=== PATIENT | female | born 1940 | race Caucasian/White ===

== ENCOUNTER 2018-01-29 11:52 | Inpatient (IN) | payer MEDICARE ==
[2018-01-29 12:38] LABS: PTT 32.2 SEC (22.9-36.1)
[2018-01-29 12:42] LABS: Prothrombin Time 13.2 SEC (12.0-14.7)
[2018-01-29] MEDS ORDERED: CEFAZOLIN/Water 2 GM/20 ML SYRINGE ONE (13:55)
--- NOTE | 2018-01-29 13:56 | RAD ---
CHEST 1 VIEW: Date: 01/29/18 HISTORY: Preop. COMPARISON: Chest radiograph dated 01/12/17. FINDINGS: Lungs are clear. No pneumothorax or effusion. Cardiac silhouette and mediastinal contours within norm al limits. Advanced degenerative disease of both shoulders. IMPRESSION: No acute intrathoracic abnormality. POS: [facility]
[2018-01-29] MEDS ORDERED: Midazolam HCl 2 mg/2 ml Vial ONE (14:14)
[2018-01-29] MEDS ORDERED: Fentanyl 250 MCG/5 ML VIAL ONE (14:14)
[2018-01-29] MEDS ORDERED: Ondansetron HCl/PF 4 MG/2 ML Vial ONE (14:19)
[2018-01-29] MEDS ORDERED: PHENYLEPHRINE-NS 100 MCG/ML 10 ML SYRINGE ONE (14:54)
[2018-01-29] MEDS ORDERED: Dexamethasone 20 MG/5 ML VIAL ONE (14:54)
[2018-01-29] MEDS ORDERED: Propofol 200 MG/20 ML VIAL ONE (14:54)
[2018-01-29] MEDS ORDERED: diphenhydrAMINE 50 MG/ML VIAL ONE (14:54)
[2018-01-29] MEDS ORDERED: Lidocaine 1% PF 5 ML VIAL ONE (14:54)
[2018-01-29] MEDS ORDERED: Dextrose 50% Abboject 50 ML SYRINGE SLOW IVP PRN (17:34)
[2018-01-29] MEDS ORDERED: Milk Of Magnesia 30 ML UDCUP PO PRN (17:34)
[2018-01-29] MEDS ORDERED: Dextrose 5% in Water 1,000 ML IV PRN (17:34)
[2018-01-29] MEDS ORDERED: Fleet Enema 133 ML BOT PR PRN (17:34)
[2018-01-29] MEDS ORDERED: Fentanyl 100 MCG/2 ML VIAL SLOW IVP PRN (17:34)
[2018-01-29] MEDS ORDERED: Bisacodyl 10 MG SUPP PR PRN (17:34)
[2018-01-29] MEDS ORDERED: traMADol HCl 50 MG TAB PO PRN (17:34)
[2018-01-29] MEDS ORDERED: Ondansetron HCl/PF 4 MG/2 ML Vial IVP PRN (17:34)
[2018-01-29] MEDS ORDERED: Ondansetron ODT 4 MG TAB PO PRN (17:34)
[2018-01-29] MEDS ORDERED: Cepastat Lozenges 1 LOZ PO PRN (17:34)
[2018-01-29 17:58] VITALS: BMI 20.5
[2018-01-29] MEDS: traMADol HCl 50 MG TAB PO PRN (18:40)
[2018-01-29] MEDS: Sodium Chloride 0.9% 1,000 ML IV SCH (18:46)
--- NOTE | 2018-01-29 19:08 | PRG ---
DATE OF SERVICE: 01/29/2018 SUBJECTIVE: Ms. Gonsales was seen earlier today in the emergency department after a ground level fall where she sustained a left hip fracture. She was admitted to the hospital by the Trauma Services. S he was then taken to the operating room by Dr. Shah. She is now seen on the surgical floor postop eratively. OBJECTIVE: VITAL SIGNS: Blood pressure 135/88, pulse 106, respirations 18, O2 sat 97% on 2 liters. Pain 2/10. CONSTITUTIONAL: Elderly female, sitting up in bed, eating dinner. No acute distress. CARDIOVASCULAR: Regular rate and rhythm. Heart sounds normal. RESPIRATORY: Breath sounds clear, on 2 liters O2 nasal cannula. EXTREMITIES: Moves all extremities well. Cap refill brisk. Neurovascularly intact. ASSESSMENT: 1. Status post ground level fall. 2. Status post open reduction and internal fixation, left hip fracture. PLAN: 1. The patient is on regular diet. We will add scheduled oral pain medications. 2. Start PT, OT tomorrow with orthopedic restrictions. We will continue to follow the patient closely. The patient was discussed with Dr. Smtih.
[2018-01-29] MEDS: Famotidine/PF 20 mg/2ml Vial SLOW IVP SCH (21:08)
[2018-01-29] MEDS: Aspirin 325 MG TAB PO SCH (21:08)
[2018-01-29] MEDS: CEFAZOLIN/Water 2 GM/20 ML SYRINGE SLOW IVP SCH (21:09)
[2018-01-29] MEDS: Senokot S 8.6-50 MG TAB PO SCH (21:09)
--- NOTE | 2018-01-29 22:49 | CON ---
DATE OF CONSULTATION: 01/29/2018 CHIEF COMPLAINT: Left hip pain. HISTORY OF PRESENT ILLNESS: Ms. Gonsales is a pleasant 77-year-old female who presents to me after a fall from a stand this morning. She says she fell and tripped on her left hip. Denied loss of consciousness. The pain is rated 8/ 10. Pain as highest as 10/10 with motion. The patient currently lives alone. She is walking around. The patient has history of COPD. PAST MEDICAL HISTORY: Includes COPD. She is on home oxygen. The patient has history of anxiety. PAST SURGICAL HISTORY: Includes a hysterectomy as well as a lithotripsy. ALLERGIES: No known drug allergies. MEDICATIONS: Includes albuterol, home O2, Advair and sertraline. SOCIAL HISTORY: She has a history of smoking. Currently, not drinking. The patient lives alone. The patient's ambulatory status is community/household. PHYSICAL EXAMINATION: VITAL SIGNS: 170/82, 88, 18, rate 95% on 2 liters. The patient's pain is 8/10. GENERAL: Alert and oriented female, in no acute distress. HEENT: Normocephalic and atraumatic. HEART: Regular rate. LUNGS: Unlabored, bilateral chest rise and nontender to palpation bilateral flanks. ABDOMEN: Soft, nontender and nondistended. PELVIC: Stable to AP and lateral compression. EXTREMITIES: Left lower extremity, the patient has externally rotated shortened left hip with ER The patient has 1+ DP and PT pulses, soft compartments. No knee effusion or abrasion to anterior knee. She has no tenderness to the left thigh. She has pain with internal and external rotation of her hip. IMAGING DATA: 1. Radiographs showed a left intertrochanteric hip fracture. 2. EKG shows sinus tachycardia and possible heart dilation. LABORATORY DATA: Hemoglobin and hematocrit 12 and 39, INR of 1. The patient's creatinine is 0.73. The patient had a negative UA. IMPRESSION: 1. Left intertrochanteric hip fracture. 2. Chronic obstructive pulmonary disease. 3. Anxiety. 4. Oxygen-dependent. ASSESSMENT AND PLAN: Plan will be for an intramedullary nailing of left hip. I discussed with patient the risks and benefits of a left intertrochanteric hip fracture that include pain, scar, bleeding, infection, damage to vital structures, damage to the vital organs, loss of life or limb. The patient is currently n.p.o. She will receive antibiotics and TXA preoperatively. She understands the risks and benefits and elected to proceed. We attempted contacting three of her family and relatives, but we did not have any contact information. We could not reach them on any of the cell phone number stated. MATTHEW
--- NOTE | 2018-01-29 22:50 | HP ---
REQUESTING PHYSICIAN: Dr. Teodoro Chirinos, Emergency Department. ADMITTING PHYSICIAN: Dr. Esteban Smith. CONSULTING PHYSICIAN: Dr. Tang Shah, Orthopedics. HISTORY OF PRESENT ILLNESS: Ms. Gonsales is a 77-year-old female, who was in her usual state of health today when she was ambulating on her doorway and slipped on her step, causing her to fall onto her l eft hip. She denies striking her head. She denies LOC. She does not complain of any other injuries . She does complain of pain in the left hip. The pain is worsened with palpation or movement. Pain is alleviated by pain medicine that she has been administered. She was describing that she was in h er usual state of health. She has no other complaints. She is typically on oxygen 2 liters at home 24 hours a day. She has COPD. She denies any other medical problems. She is not having any additio nal shortness of breath, chest pain, or any other distress. PAST MEDICAL HISTORY: Includes pulmonary disease; COPD, oxygen dependent. PAST SURGICAL HISTORY: 1. Lithotripsy for kidney stone. 2. Hysterectomy in 1973. SOCIAL HISTORY: The patient is a former tobacco smoker, 1 pack per day x50 years. She quit smoking 10-15 years ago. The patient denies alcohol use. The patient denies drug use. The patient lives at home with her daughter. MEDICATIONS: 1. Albuterol nebulizer. 2. Advair inhaler. 3. Sertraline. 4. Oxygen 2 liters via nasal cannula. ALLERGIES: No known drug allergies. DIAGNOSTIC IMAGING: X-ray of pelvis shows a nondisplaced intertrochanteric left hip fracture. LABORATORY DATA: Hematology: WBC 12.8, RBC 4.27, hemoglobin 12.6, hematocrit 39, platelets 260. Co ags: PT 13.2, INR 1.0. Chemistry: Sodium 143, potassium 4.2, chloride 108, carbon dioxide 25, BUN 11, creatinine 0.73, glucose 111. REVIEW OF SYSTEMS: Other than as stated above, review of systems is negative. PHYSICAL EXAMINATION: VITAL SIGNS: Blood pressure 151/69, pulse rate 99, O2 sat 96% on 2 liters O2 nasal cannula, respirat ions 18. Pain 5/10. CONSTITUTIONAL: Elderly female, in no acute distress, nontoxic appearing. HEENT: Atraumatic, normocephalic. NECK: Without posterior tenderness. Trachea midline. Normal range of motion. RESPIRATORY: Bilateral breath sounds clear. No respiratory distress. Symmetrical chest wall moveme nt. CARDIOVASCULAR: Regular rate and rhythm. Heart sounds normal. ABDOMEN: Soft, nontender, nondistended. Bowel sounds normal. BACK: Normal inspection. No tenderness to palpation. EXTREMITIES: Bilateral upper extremities within normal limits. Cap refill brisk. Neurovascularly i ntact. Right lower extremity atraumatic. Moves extremities well. Left lower extremity exhibits ext ernal rotation with shortening of the leg. Tenderness to the left hip with palpation. Neurovascular ly intact. Cap refill brisk. NEUROLOGIC: GCS is 15. Alert and oriented x3. No focal weakness. SKIN: Skin is warm and dry. Normal color. ASSESSMENT: 1. Status post ground level fall. 2. Left intertrochanteric hip fracture. 3. Acute traumatic pain. 4. History of chronic obstructive pulmonary disease, present on admission. PLAN: 1. Admit to surgical floor with Trauma Services, Dr. Smith. 2. Consult Dr. Shah. I have discussed with Dr. Shah and his plan is to move forward with oper ative intervention. 3. N.p.o. and IV fluids. 4. IV Tylenol scheduled for pain control. 5. Physical therapy and occupational therapy consult with orthopedic limitations postoperatively. 6. Rehab screen for rehab placement postoperatively. This patient was reviewed with Dr. Smith at the time of this dictation. Dr. Smith in agreement. A velarde orthopedic plan of care.
[2018-01-30] MEDS: Sodium Chloride 0.9% 1,000 ML IV SCH ×2 (04:35→12:25)
[2018-01-30] MEDS: CEFAZOLIN/Water 2 GM/20 ML SYRINGE SLOW IVP SCH (05:56)
[2018-01-30 06:01] LABS: Band 13 % (5-11); Hemoglobin 10.8 g/dL (12.0-16.0); Lymphocytes 10 % (21-51); MDiff Complete? YES; Mean Corpuscular Volume 93.9 fl (81.0-99.0); Monocytes 4 % (0-10); Neutrophil 73 % (42-75); PLT Morphology Comment Appears Adequate; Platelet Count 251 thou/uL (130-400); RBC Distribution Width 12.6 % (11.5-14.5); Red Blood Cell (RBC) Count 3.58 mill/uL (4.20-5.40); White Blood Cell (WBC) Count 11.5 thou/uL (4.8-10.8)
--- NOTE | 2018-01-30 07:28 | OP ---
DATE OF PROCEDURE: 01/29/2018 PREOPERATIVE DIAGNOSIS: Left intertrochanteric hip fracture. POSTOPERATIVE DIAGNOSIS: Left intertrochanteric hip fracture. PROCEDURE PERFORMED: Left intramedullary nailing TFNA, left intertrochanteric hip fracture. STAFF: Tang Shah M.D. MANAGER MATERIALS MANAGEMENT: None. ANESTHESIA: Paul Feliciano M.D. The patient received a spinal with a TIVA. ESTIMATED BLOOD LOSS: 100 mL. TOURNIQUET TIME: None. IMPLANTS: A Synthes 12 x 170 mm titanium cannulated TFNA, Synthes nail TFNA 95 mm screw, 5 mm x 36 m m distal locking screw. ANTIBIOTICS: Ancef 2 grams. The patient received TXA times about 4 mL and stated she was nauseated secondary to the injection. COMPLICATIONS: None. HISTORY OF PRESENT ILLNESS: Ms. Gonsales is a 77-year-old female, who presented after a fall from [facility], had left hip pain 8-10. The patient had x-rays showing an intertrochanteric hip fracture. I discussed with patient the risks and benefits of a left IM nailing for left intertrochanteric fractu re to include pain, scar, bleeding, infection, damage to vital structures, decreased range of motion, strength, continued pain despite surgical intervention, failure of procedure, fracture above or belo w stem, loss of life or limb. The patient understood the risks and benefits and elected to proceed. PROCEDURE IN DETAIL: Timeout was performed designating the patient's left lower extremity as the oper ative site based on sight, consents, and markings. After completion of timeout, patient's left lower extremity was prepped and draped in sterile fashion. She has been placed in traction with her hip r educed in traction. She had a little bit of extension deformity at the neck, which I corrected with force under radiograph and used a blunt push to help when during my placement of my center-center omid de. I started by placing a skin incision just above the greater trochanter down through skin to the IT band, split came down, felt the trochanter, placed my guide pin under visualization. My initial a pproach was on the anterior side using my 6 mm trocar to help push it posteriorly. I liked my positi on within the trocar and I then drill opening reamed it. I then placed my 12 mm nail into position a nd placed my guide to center-center position. I placed a stab incision anteriorly to help push the n kris posteriorly to keep it out of the flexed position. I then pin the hip into position. I overream ed to 100 and placed 95 mm screws, I compressed, letting the traction off to help with compression to get good overall alignment in AP and lateral radiographs. I liked the position. I was a little bit low in the center position of the head, but almost I had good tip to the apex distance. I then used my loose screw to lock the gate down onto the screw and release it by 180 degrees to help to allow f or compression. We then made a second stab incision more distally through the incision. I placed my compression screw and placed a distal locking screw, 5 mm locking screw. I then washed, closed with 0, 2-0, and sita. The patient will be weightbearing as tolerated. We will follow up with our post-op protocol. She wi ll receive Ancef and in x24 hours will be admitted back to Trauma Service.
--- NOTE | 2018-01-30 08:38 | RAD ---
LEFT HIP 2 VIEWS: Date: 01/29/18 PROVIDED CLINICAL HISTORY: Left hip fracture, status post open reduction and internal fixation. FINDINGS: Comparison made with examination performed earlier same date. Spot fluoroscopic frontal and lateral views of the left hip demonstrate interval antegrade intramedul kory femoral nail transfixing the previously described intertrochanteric left proximal femoral fractu re with proximal and distal interlocking screws. IMPRESSION: As above. POS: [facility]
[2018-01-30] MEDS: Aspirin 325 MG TAB PO SCH ×2 (08:58→21:11)
[2018-01-30] MEDS: Senokot S 8.6-50 MG TAB PO SCH ×2 (08:58→21:11)
[2018-01-30] MEDS: Ferrous Gluconate 324 MG TAB PO SCH ×2 (08:59→17:43)
[2018-01-30] MEDS: Famotidine/PF 20 mg/2ml Vial SLOW IVP SCH ×2 (08:59→21:11)
[2018-01-30] MEDS: Multivitamin W/ Minerals 1 TAB PO SCH (08:59)
[2018-01-30] MEDS: traMADol HCl 50 MG TAB PO PRN ×2 (09:03→15:05)
[2018-01-30] MEDS: Acetaminophen 325 MG TAB PO PRN ×2 (12:26→17:43)
--- NOTE | 2018-01-30 15:09 | PRG ---
DATE OF SERVICE: 01/30/2018 ATTENDING PHYSICIAN: Dr. Esteban Smith. SUBJECTIVE: Ms. Gonsales was admitted one day ago with a left intertrochanteric hip fracture. She is postoperative day #1 status post left IM nail. She has been stable overnight on the surgical floor. Pain has been well controlled. She is using her incentive spirometer. She is scheduled to begin wo rking with physical and occupational therapy today. OBJECTIVE: VITAL SIGNS: Temperature 97.9, pulse 105, respirations 16, O2 sat 96% on 2 liters nasal cannula, blo od pressure 148/80. CONSTITUTIONAL: Elderly female lying in bed. No acute distress. PULMONARY: Bilateral breath sounds, clear. The patient on 2 liters at home. No respiratory distre ss. CARDIOVASCULAR: Regular rate and rhythm. Heart sounds normal. EXTREMITIES: Moves all extremities well. Surgical dressing intact to the left hip area. NEUROLOGIC: GCS of 15. PSYCHIATRIC: AO x3. ABDOMEN: Soft, nontender, nondistended. ASSESSMENT: 1. Status post ground level fall. 2. Status post open reduction internal fixation left hip fracture. 3. History of chronic obstructive pulmonary disease, present on admission. PLAN: 1. Continue analgesia with Tylenol and tramadol as ordered. Restart home medications of inhalers an d Zoloft. 2. Continue PT and OT. 3. Case management screen as well as rehab screening. 4. We will discontinue Vergara tomorrow. 5. DVT prophylaxis with aspirin 325 mg p.o. b.i.d. 6. Pepcid for PUD prophylaxis. 7. Anticipate patient will discharge to rehab when we get acceptance. The patient was reviewed with Dr. Smith, attending surgeon, who agrees with plan.
--- NOTE | 2018-01-30 17:12 | PRG ---
DATE OF SERVICE: 01/30/2018 SUBJECTIVE: Ms. Kristen Gonsales is a 77-year-old female who has fallen and fractured her hip. She has undergone ORIF of her left hip by Dr. Shah. OBJECTIVE: LUNGS: Clear to auscultation. CARDIAC: Regular rate and rhythm without murmur or gallop. ABDOMEN: Soft, nontender. EXTREMITIES: Unremarkable. PLAN: Secondary survey does not reveal any other significant findings. Allyssa Phelan NP, has seen h er and I agree with her assessment and plan.
[2018-01-30] MEDS: Mometasone/Formoterol 120 PUFF INHALER INH SCH (19:15)
[2018-01-30] MEDS: Albuterol Sulfate 2.5 mg/3 ml Neb NEB PRN (19:18)
[2018-01-31 04:44] LABS: Hemoglobin 9.3 g/dL (12.0-16.0); Mean Corpuscular HGB CONC 33.3 g/dL (32.0-36.0); Mean Corpuscular Hemoglobin 30.5 pg (27.0-31.0); Mean Corpuscular Volume 91.5 fl (81.0-99.0); Mean Platelet Volume 7.3 fL (7.4-10.4); Platelet Count 207 thou/uL (130-400); RBC Distribution Width 12.5 % (11.5-14.5); Red Blood Cell (RBC) Count 3.04 mill/uL (4.20-5.40); White Blood Cell (WBC) Count 7.4 thou/uL (4.8-10.8)
[2018-01-31] MEDS: Mometasone/Formoterol 120 PUFF INHALER INH SCH ×2 (07:27→20:12)
[2018-01-31] MEDS: Aspirin 325 MG TAB PO SCH ×2 (08:24→21:03)
[2018-01-31] MEDS: Ferrous Gluconate 324 MG TAB PO SCH ×2 (08:24→16:52)
[2018-01-31] MEDS: Senokot S 8.6-50 MG TAB PO SCH ×2 (08:24→21:03)
[2018-01-31] MEDS: Famotidine/PF 20 mg/2ml Vial SLOW IVP SCH ×2 (08:25→23:46)
[2018-01-31] MEDS: Acetaminophen 325 MG TAB PO PRN (08:25)
[2018-01-31] MEDS: Multivitamin W/ Minerals 1 TAB PO SCH (08:25)
--- NOTE | 2018-01-31 16:05 | PRG ---
DATE OF SERVICE: 01/31/2018 ATTENDING PHYSICIAN: Dr. Esteban Smith. SUBJECTIVE: Ms. Gonsales was admitted 2 days ago with a left intertrochanteric hip fracture. She is p ostoperative day #2, status post left IM nail. She has been stable overnight on the surgical floor. Vergara catheter has been removed. She is now voiding. Pain has been well controlled. She is using her incentive spirometer with volumes to 750-1000 mL. OBJECTIVE: VITAL SIGNS: Temperature 98.4, pulse 92, respirations 18, O2 sat 97% on 2 liters nasal cannula, bloo d pressure 144/84. CONSTITUTIONAL: Elderly female lying in bed in no acute distress. PULMONARY: Bilateral breath sounds clear, 2 liters O2 nasal cannula. No respiratory distress. CARDIOVASCULAR: Regular rate and rhythm. Heart sounds normal. EXTREMITIES: Moves all extremities well. Surgical dressing intact, left hip area. NEUROLOGIC: GCS 15, A and O x3. ABDOMEN: Soft, nontender, nondistended. ASSESSMENT: 1. Status post ground level fall. 2. Status post open reduction and internal fixation of left hip fracture. 3. History of chronic obstructive pulmonary disease, present on admission. PLAN: 1. Continue analgesia with Tylenol and tramadol as ordered. 2. Continue home medications. 3. Continue PT and OT. 4. Continue rehab screen and case management for discharge planning. 5. DVT prophylaxis with aspirin 325 mg p.o. b.i.d. 6. Pepcid for PUD prophylaxis. 7. Anticipate the patient will discharge to rehab when we get acceptance. Patient was reviewed with Dr. Smith, attending surgeon, who agrees with plan.
[2018-01-31] MEDS: Albuterol Sulfate 2.5 mg/3 ml Neb NEB PRN (20:16)
[2018-01-31] MEDS: traMADol HCl 50 MG TAB PO PRN (21:02)
[2018-02-01 05:50] LABS: Hemoglobin 9.4 g/dL (12.0-16.0); Mean Corpuscular Hemoglobin 29.9 pg (27.0-31.0); Mean Corpuscular Volume 90.6 fl (81.0-99.0); Mean Platelet Volume 6.3 fL (7.4-10.4); Platelet Count 183 thou/uL (130-400); RBC Distribution Width 12.4 % (11.5-14.5); Red Blood Cell (RBC) Count 3.14 mill/uL (4.20-5.40); White Blood Cell (WBC) Count 7.2 thou/uL (4.8-10.8)
[2018-02-01] MEDS: Mometasone/Formoterol 120 PUFF INHALER INH SCH ×2 (07:53→19:26)
[2018-02-01 08:49] LABS: Anion Gap 7 mmol/L (10-20); BUN (Urea Nitrogen) 13 mg/dL (9.8-20.1); Calc. Creatinine Clearance 64 mL/min (70-130); Calcium 8.8 mg/dL (7.8-10.44); Carbon Dioxide 32 mmol/L (23-31); Chloride 106 mmol/L (98-107); Estimated GFR-MDRD Greater than 90; Glucose 99 mg/dL (83-110); Potassium 3.4 mmol/L (3.5-5.1); Sodium 142 mmol/L (136-145)
[2018-02-01] MEDS ORDERED: Docusate 100 MG CAP PO SCH (09:00)
[2018-02-01] MEDS ORDERED: Bisacodyl 10 MG SUPP PR PRN (09:00)
[2018-02-01] MEDS ORDERED: Bisacodyl 10 MG SUPP PR SCH (09:00)
[2018-02-01] MEDS ORDERED: Senokot 8.6 MG TAB PO SCH (09:00)
[2018-02-01] MEDS: Aspirin 325 MG TAB PO SCH (09:32)
[2018-02-01] MEDS: Multivitamin W/ Minerals 1 TAB PO SCH (09:33)
[2018-02-01] MEDS: Ferrous Gluconate 324 MG TAB PO SCH ×2 (09:33→17:36)
[2018-02-01] MEDS: Senokot S 8.6-50 MG TAB PO SCH (09:37)
[2018-02-01] MEDS: Famotidine/PF 20 mg/2ml Vial SLOW IVP SCH (09:37)
[2018-02-01] MEDS ORDERED: Ondansetron ODT 4 MG TAB PO PRN (09:38)
--- NOTE | 2018-02-01 09:59 | PQF ---
DATE: 02-01-18 ATTN: SANDEEP GARCIA NP / DR. ANTELMO CAON Please exercise your independent, professional judgment in responding to the clarification form. Clinical indicators are provided on the bottom of this form for your review Please check appropriate box(s): [ X ] Chronic Respiratory Failure [ X ] with Hypoxia [ ] with Hypercapnia [ ] Hypoxia [ ] Other diagnosis [ ] Unable to determine In addition, please specify: Present on Admission (POA): [ X ] Yes [ ] No [ ] Unable to determine For continuity of documentation, please document condition throughout progress notes and discharge summary. Thank You. CLINICAL INDICATORS - SIGNS / SYMPTOMS / LABS H&P: SHE IS TYPICALLY ON OXYGEN AT HOME 24 HRS A DAY, SHE HAS COPD. H&P: PAST MEDICAL HISTORY: COPD, OXYGEN DEPENDENT, FORMER SMOKER RISK FACTORS: H&P: SHE IS TYPICALLY ON OXYGEN AT HOME 24 HRS A DAY, SHE HAS COPD. H&P: PAST MEDICAL HISTORY: COPD, OXYGEN DEPENDENT, FORMER SMOKER TREATMENTS: H&P: SHE IS TYPICALLY ON OXYGEN AT HOME 24 HRS A DAY, SHE HAS COPD. (MAR) ALBUTEROL SULFATE (This form is maintained as a part of the permanent medical record) 2014 [employer] All Rights Reserved [email or web address] Office: [phone] MATTHEW
--- NOTE | 2018-02-01 10:02 | PRG ---
DATE OF SERVICE: 02/01/2018 SUBJECTIVE: Kristen is now postoperative day #3 from a left hip intertrochanteric fracture treated wit h short TFNA. She is doing relatively well, walking approximately 20-30 feet with assistance and [place] she will be transferred to skilled facility in the next day or so. PHYSICAL EXAMINATION: EXTREMITIES: Incision is clean. Olimpia are clean, no strikethrough is noted, intact. ASSESSMENT: A 77-year-old white female postop day #3 left hip intertrochanteric fracture treated wi th short transfemoral nail. PLAN: Orthopedic discharge orders for wound care, followup and activity has been entered. We will c sherie to follow daily until discharge.
--- NOTE | 2018-02-01 11:00 | PRG ---
DATE OF SERVICE: 02/01/2018 ATTENDING PHYSICIAN: Dr. Barrett Mendiola. SUBJECTIVE: Ms. Gonsales is a 77-year-old female who was admitted on 01/29/2018 with a left intertroch anteric hip fracture. She is now postop day 3 status post left IM nail. The patient has been stable on the surgical floor. She is on 2 liters nasal cannula which she is on at home. She voices no com plaints this morning. OBJECTIVE: VITAL SIGNS: BP 143/80, pulse 88, temperature 98.6, respirations 16, O2 sat 98% on 2 liters. GENERAL APPEARANCE: Patient is an elderly adult female sitting on the edge of the bed, working with physical therapy. HEENT: Normocephalic and atraumatic. RESPIRATORY: Breath sounds are clear to auscultation bilaterally. She is on 2 liters nasal cannula. CARDIOVASCULAR: She has regular rate and rhythm. Normal S1 and S2. EXTREMITIES: Patient is neurovascularly intact x4. Surgical dressing on the left hip is intact and dry. NEUROLOGIC: Patient's GCS is 15. This morning, she is A and O x3. She has no focal deficits. LABORATORY DATA: Hematology: WBC 7.2, hemoglobin 9.4, hematocrit 28.4, and platelets 183. Chemistr y: Sodium 142, potassium 3.4, chloride 106, bicarbonate 32, BUN 13, creatinine 0.62, glucose 99, tonio cium 8.8. IMAGING: There are no images to review today. ASSESSMENT: 1. Status post ground level fall. 2. Left hip fracture, status post intramedullary nail fixation. 3. History of chronic obstructive pulmonary disease, present on admission. PLAN: 1. Continue PT and OT. 2. Tylenol and tramadol for pain. 3. The patient has expressed a preference for discharge to swing bed in [place]. Case manageme nt following. This patient was seen and examined along with Dr. Barrett Mendiola on rounds and agrees with the assessm ent and plan.
[2018-02-01 16:29] VITALS: BP 97/64; TEMP 98.3
[2018-02-01] MEDS: Albuterol Sulfate 2.5 mg/3 ml Neb NEB PRN (19:23)
[2018-02-01] MEDS ORDERED: Famotidine 20 MG TAB PO SCH (21:00)
== END 2018-02-01 20:22 | disposition swing bed (61) | DRG 481 ==
LOC: ERS 11:52 → SDC 12:42 → SJJU 16:21
PROVIDERS: ADMIT Specialist; ATTEND Specialist
PROC: 0QS706Z Reposition Left Upper Femur with Intramedullary Internal Fixation Device, Open Approach (ICD-10-PCS; principal; 2018-01-29)
DX: S72.142A Displaced intertrochanteric fracture of left femur, initial encounter for closed fracture (principal); J96.11 Chronic respiratory failure with hypoxia; Z99.81 Dependence on supplemental oxygen; J44.9 Chronic obstructive pulmonary disease, unspecified; W10.8XXA Fall (on) (from) other stairs and steps, initial encounter; Y92.008 Other place in unspecified non-institutional (private) residence as the place of occurrence of the external cause; Z87.891 Personal history of nicotine dependence; F41.9 Anxiety disorder, unspecified
CPT/HCPCS: 36415; 71045; 76001; 80048; 85027; 85610; 85730; 86850; 86900; 86901; 93005; 94640; 94664; C1713; G0390; G8978-GP-CM; G8979-GP-CK; G8987-GO-CK; G8988-GO-CI; J1100; J1200; J2001; J2250; J2405; J2704; J3010; J7611; J7620; S0028

== ENCOUNTER 2019-10-17 09:24 | Day surgery (SDC) | payer MEDICARE ==
[2019-10-17] MEDS ORDERED: Metoclopramide HCl 10 MG/2 ML VIAL ONE (09:45)
[2019-10-17] MEDS ORDERED: Lidocaine 1% PF 5 ML VIAL ONE (09:53)
[2019-10-17] MEDS ORDERED: Glycopyrrolate 0.2 MG/ML 5 ML SYRINGE ONE (09:53)
[2019-10-17] MEDS ORDERED: PHENYLEPHRINE-NS 100 MCG/ML 10 ML SYRINGE ONE (09:53)
[2019-10-17] MEDS ORDERED: Rocuronium Bromide 10 MG/ML (10ML VIAL) ONE (09:53)
[2019-10-17] MEDS ORDERED: Ketorolac Tromethamine 30 MG/ML VIAL ONE (09:53)
[2019-10-17] MEDS ORDERED: Esmolol 100 MG/10 ML VIAL ONE (09:53)
[2019-10-17] MEDS ORDERED: PROPOFOL 200 MG/20 ML VIAL ONE (09:53)
[2019-10-17] MEDS ORDERED: Ondansetron PF 4 MG/2 ML Vial ONE (09:53)
[2019-10-17] MEDS ORDERED: Metoprolol Tartrate 5 MG/5 ML VIAL ONE (09:54)
--- NOTE | 2019-10-17 11:56 | ULT ---
US Gallbladder RUQ History: Pain Comparison: CT examination same day Findings: Real-time grayscale and color evaluation of the abdomen was performed. Visualized portion aorta, IVC, and pancreas unremarkable. Echotexture is normal. No hepatic or extra hepatic biliary dilatation. Portal vein is patent with ant egrade flow. Common bile 4 mm. Gallbladder measures 8 cm in length. Wall thickness is upper limits of normal. Normal bowel stone within the gallbladder neck. Right kidney measures 9.6 x 4 x 3.9 cm without mass, hydronephrosis, or abnormal calcification. Impression: Nonmobile stone within the gallbladder neck with early wall thickening concerning for ear ly cholecystitis.
--- NOTE | 2019-10-17 12:09 | RAD ---
CHEST 2 VIEWS: HISTORY: COPD. COMPARISON: 01/29/2018 study. FINDINGS: Heart size within normal limits. There are atherosclerotic changes of the aorta. The lungs show chr onic change similar to the prior study. The bones are demineralized. IMPRESSION: Chronic lung change. POS: [facility]
[2019-10-17 12:14] LABS: INR-International Normal Ratio 0.9; PTT 31.8 SEC (22.9-36.1); Prothrombin Time 11.8 SEC (12.0-14.7)
[2019-10-17] MEDS ORDERED: diphenhydrAMINE 50 MG/ML VIAL ONE (12:16)
[2019-10-17] MEDS ORDERED: Morphine 4 MG/ML VIAL ONE (12:36)
[2019-10-17] MEDS ORDERED: Labetalol HCl 100 MG/20 ML VIAL ONE (12:36)
[2019-10-17] MEDS ORDERED: Bupivacaine 0.25% HCL 30 ML VIAL ONE (12:44)
[2019-10-17] MEDS ORDERED: Fentanyl 250 MCG/5 ML VIAL ONE (12:53)
--- NOTE | 2019-10-17 13:03 | HP ---
HISTORY OF PRESENT ILLNESS: Ms. Gonsales is a 78-year-old woman, who was seen earlier in [facility] [facility] with insidious onset epigastric right upper quadrant abdominal pain, which started approximately 1800 hours yesterday following dinner consisting of pork chops and rice. The patient describes the pain as sharp,"took breath away." Pain radiated to the back and right shoulder. Pain was initially associated with some nausea and became progressive this morning to include multiple bouts of nonbilious emesis. The patient denies any fevers or chills. She has experienced similar pain in the past, which was self-limiting and not as intense as the pain that brought her to the emergency department today. The pain at this time was rated at 9/10 at maximum intensity. PAST MEDICAL HISTORY: Pertinent for peptic ulcerative disease in the distant past. Additionally, she has history of ADHD. PAST SURGICAL HISTORY: Abdominal hysterectomy in the 70s. SOCIAL HISTORY: She is a 50-pack year cigarette smoker, has not smoked over the last 15 years. She admits to occasional intake of ethanol in moderate amounts. Denies any illicit drug abuse. FAMILY HISTORY: Noncontributory for this patient's age. MEDICATIONS: Pre-hospital medications includes; 1. Sertraline 25 mg p.o. b.i.d. 2. Multivitamins. 3. P.r.n. acetaminophen. ALLERGIES: THE PATIENT DENIES ANY KNOWN DRUG ALLERGIES. REVIEW OF SYSTEMS: Ten-point review of systems essentially unremarkable except as stated in past medical history and chief complaint. PHYSICAL EXAMINATION: GENERAL: This reveals a 78-year-old normally developed woman, who is otherwise coherent, interactive, and appears stated age. The patient is alert and oriented x3, appears to be in moderate acute distress secondary to severe right upper quadrant abdominal pain. VITAL SIGNS: Include blood pressure 192/60, pulse 105 and irregular, respiratory rate 16, temperature 97.6 degrees Fahrenheit, oxygen saturation is 92% on 2 L by nasal cannula oxygen. HEENT: Reveals normocephalic and atraumatic. The pupils are equal, round, and reactive to light and accommodation. She has no scleral icterus present. Oral mucosa is pink and moist. No lesions are noted. NECK: Supple. No palpable lymphadenopathy or thyromegaly present. HEART: Reveals irregular rate and irregular rhythm. LUNGS: Clear to auscultation bilaterally. Her breathing is regular and nonlabored. ABDOMEN: Soft, moderately distended. She has right upper quadrant tenderness to palpation. She has a positive Gross sign. Liver and spleen otherwise nonpalpable below costal margin. EXTREMITIES: 2+ radial and pedal pulses bilaterally. No ankle edema is present. NEUROLOGIC: Reveals no focal deficits present. LABORATORY FINDINGS: Today includes CBC with 9100 white blood cells, hemoglobin and hematocrit 12.5 and 39.9 respectively. Platelet count is 301,000. Metabolic profile; sodium 139, potassium 3.4, chloride is 100, bicarb is 27, BUN is 7, creatinine 0.73, glucose 145, lactic acid is 1.2, AST 19, ALT 16, alkaline phosphatase is 101. PTT and INR are 31.8 seconds and 0.9 respectively. I have personally reviewed the abdominal ultrasound, which is remarkable for moderately distended gallbladder with solitary gallstone impacting gallbladder neck. There is minimum gallbladder wall thickening and no pericholecystic fluid is noted. Common bile duct is normal for this patient's age at 4.9 mm in diameter. IMPRESSION: Acute cholecystitis with cholelithiasis. PLAN: Laparoscopic cholecystectomy. The above findings and plan discussed with the patient, who indicates understanding of the information given. I have informed the patient of the risks and benefits of the proposed surgery to include, but not limited to bleeding, infection, injury to bile duct or surrounding structures. This instructions are given to the patient in the presence of her nurse. She indicated understanding of the information given. I have answered her questions. Job ID: [id number] [facility]
[2019-10-17] MEDS ORDERED: hydrALAZINE 20 MG/ML VIAL SLOW IVP SCH (16:00)
[2019-10-17] MEDS ORDERED: Calcium Carbonate 500 MG ChewTAB PO PRN (16:07)
[2019-10-17] MEDS ORDERED: Ondansetron PF 4 MG/2 ML Vial IVP PRN (16:07)
[2019-10-17] MEDS ORDERED: Mag-Al 1200 mg/1200 mg/30 ML UDCUP PO PRN (16:07)
[2019-10-17] MEDS ORDERED: hydrALAZINE 20 MG/ML VIAL SLOW IVP PRN (16:07)
[2019-10-17] MEDS ORDERED: Dextrose 50% Abboject 50 ML SYRINGE SLOW IVP PRN (16:07)
[2019-10-17] MEDS ORDERED: Promethazine HCl 25 MG/ML VIAL IM PRN (16:07)
[2019-10-17] MEDS ORDERED: Dextrose 5% in Water 1,000 ML IV PRN (16:07)
[2019-10-17] MEDS ORDERED: traMADol HCl 50 MG TAB PO PRN ×2 (16:10)
--- NOTE | 2019-10-17 16:47 | OP ---
DATE OF PROCEDURE: 10/17/2019 PREOPERATIVE DIAGNOSES: Acute cholecystitis, cholelithiasis. POSTOPERATIVE DIAGNOSES: Acute cholecystitis, cholelithiasis. OPERATION PERFORMED: Laparoscopic cholecystectomy. ANESTHESIA: General endotracheal anesthesia. ESTIMATED BLOOD LOSS: 25 mL. FLUIDS GIVEN: 800 mL crystalloids. COUNTS: Sponge and instrument counts were verified as correct x2. COMPLICATIONS: None apparent at the time of operation. INDICATIONS FOR OPERATION: This is a 78-year-old woman, presented with recurrent epigastric right upper quadrant abdominal pain. Clinical radiographic examination was consistent with acute cholecystitis, cholelithiasis, for which the patient was brought to the operating room for cholecystectomy. Findings are consistent with dilated gallbladder and the usual anatomic location completely encased by omental adhesions. DESCRIPTION OF PROCEDURE: Informed consent was obtained from the patient, who was brought to the operating room and placed in supine position. Following general anesthesia, abdomen was sterilely prepped and draped in usual fashion. The skin below the umbilicus was infiltrated with 0.25% Marcaine with epinephrine. A small curvilinear infraumbilical incision was made using 11 scalpel. Umbilical stalk grasped with Waylon and elevated. Veress needle was inserted through the incision and placed in the peritoneal cavity, through which the abdomen was insufflated with 3 L of CO2 gas. Intraabdominal pressure noted at 2 mmHg. Following abdominal insufflation, Veress needle was removed and a 5 mm trocar introduced using a Visiport under laparoscopy. Laparoscopy confirmed proper placement of the port. No injuries to underlying structures. Additional laparoscopy reveals right upper quadrant completely encased by omental adhesions. Under the laparoscopy, a 12 mm epigastric and two 5 mm right lateral subcostal ports were placed after the overlying skin were infiltrated with 0.25% Marcaine with epinephrine and appropriate incision was made. The patient was placed in reverse Trendelenburg position, rotated to her left. I introduced a [place] dissector with cautery using this to take down omental adhesions to expose the fundus of the gallbladder. Prestige grasper was introduced through the right lateral subcostal port grasping the fundus of the gallbladder, which was elevated cephalad. Omental adhesions were then taken down from remainder of the gallbladder. Second Prestige grasper was introduced through the right medial subcostal port grasping the Anais pouch, which was retracted laterally. Cystic duct was carefully dissected free from surrounding structures at the triangle of Calot. The duct was divided between clips applying 2 clips proximally and 1 clip at the junction of the cystic duct and gallbladder. Cystic artery was also dissected free from surrounding structures and divided between clips in a similar fashion. The gallbladder itself was removed from the liver bed using cautery and delivered off the abdominal cavity using an EndoCatch. Operative site was inspected for good hemostasis. Finding no other pathology, laparoscopy was terminated. Fascia of the epigastric port was closed using 0 Vicryl suture and Endoclosure device under laparoscopy. All ports and instruments were removed after the abdomen was desufflated. Skin incisions were closed using 4-0 Monocryl suture in subcuticular fashion. Dermabond was applied over incisional closure. The patient tolerated the operation without any apparent complication and was returned to recovery room in satisfactory condition. Job ID: [id number]
[2019-10-17] MEDS: Lactated Ringer's 1,000 ML IV SCH ×2 (17:37→23:26)
[2019-10-17] MEDS: Ketorolac Tromethamine 30 MG/ML VIAL IVP SCH ×2 (17:40→23:26)
[2019-10-17] MEDS: Acetaminophen 500 MG TAB PO SCH ×2 (17:45→23:35)
[2019-10-17 17:51] VITALS: BMI 16.6
[2019-10-17] MEDS: Famotidine/PF 20 mg/2ml Vial SLOW IVP SCH (21:01)
[2019-10-17] MEDS: Famotidine 20 MG TAB PO SCH (21:02)
[2019-10-17] MEDS ORDERED: Acetaminophen 1,000 MG in Premix Bag 1 BAG IVPB SCH (21:30)
--- NOTE | 2019-10-17 23:46 | PRG ---
DATE OF SERVICE: 10/17/2019 SUBJECTIVE: The patient is currently a postop from laparoscopic cholecystectomy. She was admitted this morning with recurrent intermittent right upper quadrant pain. She was taken to the operating room to undergo her above procedure. She did have some postoperative pain and nausea and has felt that it would be best to keep her tonight especially due to her somewhat advanced age. The patient's chief complaint tonight is still some nausea and she is fearful of taking anything orally at this time, but otherwise states her abdominal pain has improved. OBJECTIVE: VITAL SIGNS: Stable. The patient is afebrile. GENERAL: The patient is resting comfortably in bed. She appears in no distress. ABDOMEN: Has active bowel sounds. No peritoneal signs, just tenderness as expected. ASSESSMENT: Status post laparoscopic cholecystectomy. PLAN: Plan will be to continue supportive care. Encourage out of bed, diet as tolerated, and repeat labs in the morning. Job ID: [id number]
[2019-10-18 06:06] LABS: Phosphorus 2.7 mg/dL (2.3-4.7)
[2019-10-18 06:10] LABS: ALT (SGPT) 28 U/L (8-55); AST (SGOT) 30 U/L (5-34); Albumin 3.3 g/dL (3.4-4.8); Alkaline Phosphatase 70 U/L (40-110); Anion Gap 9 mmol/L (10-20); BUN (Urea Nitrogen) 10 mg/dL (9.8-20.1); Bilirubin, Total 0.4 mg/dL (0.2-1.2); Calc. Creatinine Clearance 39 mL/min (70-130); Calcium 8.5 mg/dL (7.8-10.44); Carbon Dioxide 27 mmol/L (23-31); Chloride 107 mmol/L (98-107); Estimated GFR-MDRD 66; Globulin 2.2 g/dL (2.4-3.5); Glucose 78 mg/dL (83-110); Magnesium 1.7 mg/dL (1.6-2.6); Protein, Total 5.5 g/dL (6.0-8.3); Sodium 140 mmol/L (136-145)
[2019-10-18] MEDS: Acetaminophen 500 MG TAB PO SCH (06:17)
[2019-10-18] MEDS: Ketorolac Tromethamine 30 MG/ML VIAL IVP SCH (06:18)
[2019-10-18 07:52] VITALS: BP 103/58; TEMP 98.1
[2019-10-18] MEDS: Famotidine 20 MG TAB PO SCH (07:54)
[2019-10-18] MEDS: Famotidine/PF 20 mg/2ml Vial SLOW IVP SCH (07:57)
[2019-10-18] MEDS ORDERED: Potassium Chloride 20 MEQ TAB PO SCH (08:30)
--- NOTE | 2019-10-18 15:05 | DIS ---
DATE OF ADMISSION: 10/17/2019 DATE OF DISCHARGE: 10/18/2019 ADMITTING DIAGNOSES: Acute cholecystitis with cholelithiasis. DISCHARGE DIAGNOSES: Acute cholecystitis with cholelithiasis. OPERATION PERFORMED: Laparoscopic cholecystectomy on 10/17/2019, please see separate dictation for operative report. HISTORY AND HOSPITAL COURSE: A 78-year-old woman presented with recurrent epigastric right upper quadrant abdominal pain. Clinical and radiographic examination were consistent with acute cholecystitis with cholelithiasis for which the patient underwent an uneventful laparoscopic cholecystectomy yesterday. Following surgery, she was placed on observation. This morning, she reports adequate pain control. She is tolerating a general diet. She is having normal bowel and urinary function. On clinical examination, vital signs have remained stable and the patient has been afebrile through this admission. Incisional wounds are intact, clean, dry. She has no peritoneal signs on examination. LABORATORY FINDINGS: Today includes metabolic profile; sodium 140, potassium 3.0, chloride is 107, bicarb is 27, BUN 10, creatinine 0.83, glucose 78, phosphorus is 2.7, magnesium is 1.7, AST and ALT are normal at 30 and 28 respectively, total bilirubin is also normal at 0.4. IMPRESSION: 1. Post injury status post laparoscopic cholecystectomy, the patient is hemodynamically stable. 2. Acute hypokalemia. PLAN: Correct abnormal electrolytes. The patient will be discharged home today. DISCHARGE INSTRUCTIONS: 1. To follow up with me in the Surgery Clinic in 2 weeks. 2. She is advised to avoid weightlifting in excess of 20 pounds until she has been released by me. 3. She may shower effective tomorrow. She is to avoid using the bathtub or swimming until she has been released by me. 4. She may take Tylenol or ibuprofen as needed for pain. 5. She is given a prescription for tramadol 50 mg #20 to be taken 1 to 2 p.o. q.6 hours p.r.n. breakthrough pain. 6. The patient is to call me with any questions or problems including exacerbation of abdominal pain, intolerance to oral intake, fever in excess of 101 degrees Fahrenheit, or any abnormal drainage from incisional wounds. 7. The patient indicates understanding of information provided. I have answered her questions. The patient has expressed gratitude for the care rendered to her during this hospitalization and surgery. Job ID: [id number]
== END 2019-10-18 11:00 | disposition home or self-care (01) ==
LOC: ERS 09:24 → SDC 16:22 → SURG B 17:11 → SDC 10-18 11:00
PROVIDERS: ATTEND Surgery
PROC: 0FT44ZZ Resection of Gallbladder, Percutaneous Endoscopic Approach (ICD-10-PCS; principal; 2019-10-17)
DX: K80.12 Calculus of gallbladder with acute and chronic cholecystitis without obstruction (principal); N73.6 Female pelvic peritoneal adhesions (postinfective); E87.6 Hypokalemia; F90.9 Attention-deficit hyperactivity disorder, unspecified type; Z87.891 Personal history of nicotine dependence; Z79.899 Other long term (current) drug therapy
CPT/HCPCS: 36415; 71045; 76705; 80053; 82533; 83735; 84100; 84484; 85610; 85730; 88304; 93005; 94640; 96361; 96365; 96375; J0131; J1200; J1885; J2001; J2270; J2405; J2550; J2704; J2765; J3010; J7620; S0020; S0028

== ENCOUNTER 2019-11-15 02:51 | Inpatient (IN) | payer MEDICARE ==
[2019-11-15 03:42] LABS: #Lymphocytes 0.5 thou/uL (1.20-3.40); #Monocytes 0.9 thou/uL (0.11-0.59); #Neutrophils 9.7 thou/uL (1.40-6.50); %Basophils 0.2 % (0.0-1.0); %Eosinophils 0.2 % (0.0-10.0); %Lymphocytes 4.2 % (21.0-51.0); %Monocytes 7.8 % (0.0-10.0); %Neutrophils 87.5 % (42.0-75.0); Hemoglobin 11.3 g/dL (12.0-16.0); Mean Corpuscular HGB CONC 32.5 g/dL (32.0-36.0); Mean Corpuscular Hemoglobin 29.9 pg (27.0-31.0); Mean Platelet Volume 7.8 fL (7.4-10.4); Platelet Count 186 thou/uL (130-400); RBC Distribution Width 12.2 % (11.5-14.5); Red Blood Cell (RBC) Count 3.78 mill/uL (4.20-5.40); White Blood Cell (WBC) Count 11.1 thou/uL (4.8-10.8)
[2019-11-15 03:48] LABS: Bacteria/HPF None Seen HPF (None Seen); Bilirubin Negative (Negative); Blood, Urine Trace (Negative); Clarity Clear (Clear); Glucose, Urine (Dipstick) Normal (Negative); Leukocyte 250 Leu/uL (Negative); Nitrite Negative (Negative); Protein, Urine (Dipstick) 30 mg/dL (Neg-Trace); Squamous Epithelial 0-3 HPF (0-3); Urobilinogen Normal mg/dL (Less than 2); WBC/HPF Greater than 50 HPF (0-3)
[2019-11-15 03:55] LABS: ALT (SGPT) 9 U/L (8-55); AST (SGOT) 18 U/L (5-34); Anion Gap 17 mmol/L (10-20); BUN (Urea Nitrogen) 8 mg/dL (9.8-20.1); Bilirubin, Total 0.8 mg/dL (0.2-1.2); Calc. Creatinine Clearance 0 mL/min (70-130); Carbon Dioxide 21 mmol/L (23-31); Chloride 107 mmol/L (98-107); Estimated GFR-MDRD 69; Globulin 3.2 g/dL (2.4-3.5); Glucose 107 mg/dL (83-110); Potassium 3.7 mmol/L (3.5-5.1); Protein, Total 7.2 g/dL (6.0-8.3); Sodium 141 mmol/L (136-145)
[2019-11-15 03:57] LABS: Alkaline Phosphatase 87 U/L (40-110)
[2019-11-15] MEDS ORDERED: cefTRIAXone\\ROCEPHIN 1 GM VIAL ONE (05:33)
[2019-11-15] MEDS ORDERED: Cepastat Lozenges 1 LOZ PO PRN (07:23)
[2019-11-15] MEDS ORDERED: Loratadine 10 MG TAB PO PRN (07:23)
[2019-11-15] MEDS ORDERED: Sodium Chloride 0.65% Nasal 44 ML BOT EA NARE PRN (07:23)
[2019-11-15] MEDS ORDERED: Senokot S 8.6-50 MG TAB PO PRN (07:23)
[2019-11-15] MEDS ORDERED: Diabetic Tussin 200 MG/10 ML UDCUP PO PRN (07:23)
[2019-11-15] MEDS ORDERED: Artificial Tears 18 DROP/0.9 ML EA EYE PRN (07:23)
[2019-11-15] MEDS ORDERED: Zolpidem Tartrate 5 MG TAB PO PRN (07:23)
[2019-11-15] MEDS ORDERED: Calcium Carbonate 500 MG ChewTAB PO PRN (07:23)
[2019-11-15] MEDS ORDERED: Bisacodyl 10 MG SUPP PR PRN (07:23)
[2019-11-15] MEDS ORDERED: hydrALAZINE 20 MG/ML VIAL SLOW IVP PRN (07:23)
[2019-11-15] MEDS ORDERED: Acetaminophen 325 MG TAB PO PRN (07:23)
[2019-11-15] MEDS ORDERED: traMADol HCl 50 MG TAB PO PRN (07:23)
[2019-11-15] MEDS ORDERED: Loperamide HCl 2 MG CAP PO PRN (07:23)
[2019-11-15 07:25] VITALS: BMI 17.9
[2019-11-15] MEDS: Cefepime 2 GM in Sodium Chloride 0.9% 100 ML IVPB SCH ×2 (08:19→19:24)
[2019-11-15] MEDS: Sodium Chloride 0.9% 1,000 ML IV SCH ×2 (08:28→19:26)
--- NOTE | 2019-11-15 08:51 | CT ---
PRELIMINARY REPORT/[facility]/EMERGENCY AFTER HOURS PROCEDURE: This report was discussed with Mariely Silva MD by Zuly Zaidi on Nov 15, 2019 05:17:00 [employer] ASSURANCE CO[employer]. Addendum electronically signed by Zuly Zaidi on November 15, 2019 5:19:54 AM [employer]ALITY ASSURANCE COACH EXAM: CT Abdomen and Pelvis with Intravenous Contrast CLINICAL HISTORY: [facility] presents to ED via EMS with c/o N/V/D, onset yesterday with associated LUQ pain. Patient reports that he has been coughing more that usual since yesterday. Pt had a holly a couple of weeks ago and h as been coughing since. EMS reports that the patient had a fever of 103.2 en route. Pt was given 4 of zofran. Pt has a hx of COPD and wears 2L of oxygen at all times. Pt denies SOB. Surgeon: Dr. Mendiola. COMPARISON: US - ABDOMEN - 10/17/2019 10:39 AM QUALITY ASSURANCE COACH FINDINGS: LUNG BASES: Dependent hypoventilatory changes, linear atelectasis/scarring, and emphysema in the visu alized lung bases. LIVER: Hepatic steatosis. No focal lesion. GALLBLADDER AND BILE DUCTS: Surgically absent gallbladder. Mildly prominent bile ducts, presumably re lated to postcholecystectomy status. No abnormal fluid collection in the gallbladder fossa. PANCREAS: Nonspecific atrophy, typically an age-related finding. SPLEEN: Unremarkable. ADRENAL GLANDS: Unremarkable. KIDNEYS, URETERS, AND BLADDER: Mild hydronephrosis with urothelial enhancement bilaterally. Mildly di stended urinary bladder. Nonobstructing 2-4 mm left renal calculi. Small hypodense renal lesions bila terally, which are too small to accurately characterize. Left lower pole cortical scarring. STOMACH AND BOWEL: Small hiatal hernia. No evidence of bowel obstruction. Colonic diverticulosis without evidence of diverticulitis. APPENDIX: Not visualized. No evidence for appendicitis. PERITONEUM: No free air or sizable fluid collection. REPRODUCTIVE: Surgically absent uterus. VASCULATURE: Severe aortoiliac atherosclerotic calcifications. 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 Small infrarenal abdominal aortic aneurysm measuring up to 2.5 cm. Moderate ulcerating plaque is seen in the distal thoracic aorta. BONES: Diffuse demineralization of the osseous structures. Thoracolumbar spondylosis. Age-indeterminate T11 mild wedge compression deformity. Proximal left femoral fixation hardware is partially imaged. ABDOMINAL WALL AND SOFT TISSUES: Unremarkable. IMPRESSION: 1. Mild hydronephrosis with diffuse urothelial enhancement bilaterally, suspicious for an ascending urinary tract infection. Nonobstructing left nephrolithiasis. 2. Age-indeterminate T11 mild wedge compression deformity. Please correlate for point tenderness. 3. Status post cholecystectomy. No abnormal fluid collection in the gallbladder fossa. 4. Severe lower thoracic/abdominopelvic atherosclerotic disease with moderate ulcerating plaque in t he distal thoracic aorta and small infrarenal abdominal aortic aneurysm measuring up to 2.5 cm. ELECTRONICALLY SIGNED BY: Avery Chapa MD Nov 15, 2019 5:13:08 AM QUALITY ASSURANCE COACH This report is intended for review by the ordering physician only, in accordance of law. If you recei ve this report in error, please call [facility] at [phone]. FINAL REPORT ABDOMEN CT WITH CONTRAST PELVIC CT WITH CONTRAST: Date: 11/15/19 COMPARISON: 10/17/19. HISTORY: Nausea, vomiting, and diarrhea. Left upper quadrant pain. FINDINGS: No abnormality with regard to the solid organs. There is enhancement of bilateral intrarenal and extr arenal collecting system suggesting a component of ascending urinary tract infection. No evidence of an obstructing calculus. There is moderate dilatation of the urinary bladder. Nonobstructing calculus in the upper pole of the left kidney. Multiple hypodensities in the left and right renal cortex, com patible with cyst. There is atrophy and scarring lower pole of left kidney. Limited evaluation of the alimentary canal. No evidence of bowel obstruction. Nonspecific mild compression deformity at T11. Correlate clinically. IMPRESSION: This report is in agreement with the initial report by [facility]. Bilateral hydronephrosis wit h enhancement of the urothelial lining, which may be due to ascending urinary tract infection. Additi onal findings as above. POS: OFF
[2019-11-15] MEDS ORDERED: Enoxaparin Sodium 40 MG/0.4 ML SYRINGE SC SCH (09:00)
[2019-11-15] MEDS: HYDROcodone/Acetaminophen 5/325 mg Tablet PO PRN ×3 (09:07→20:58)
[2019-11-15] MEDS: Famotidine 20 MG TAB PO SCH ×2 (09:09→19:25)
[2019-11-15] MEDS: Multivitamin W/ Minerals 1 TAB PO SCH (09:09)
[2019-11-15] MEDS: Aspirin 325 MG TAB PO SCH (09:09)
[2019-11-15] MEDS: Ferrous Sulfate 325 MG TAB PO SCH (09:10)
--- NOTE | 2019-11-15 09:13 | RAD ---
Exam: Chest one view HISTORY:Nausea vomiting and diarrhea. Comparison: 10/25/2019 FINDINGS: Cardiac silhouette: Normal Aorta: Atherosclerosis of the aorta Pulmonary vessels: Normal Costophrenic angles: Clear LUNGS: Hyperinflation, with chronic change. No mass or consolidation. Pneumothorax: None Osseous abnormalities: None IMPRESSION: 1. Atherosclerosis 2. Chronic changes lung parenchyma. 3. No acute cardiopulmonary process.
[2019-11-15] MEDS ORDERED: Enoxaparin Sodium 30 MG/0.3 ML SYRINGE SC SCH (10:30)
--- NOTE | 2019-11-15 11:09 | HP ---
PRIMARY CARE PHYSICIAN: Dr. Carlos Owen. REASON FOR ADMISSION: Acute pyelonephritis. HISTORY OF PRESENT ILLNESS: A 78-year-old female who has end-stage COPD as well as chronic respiratory failure, who presented to emergency room with complaint of nausea, vomiting, and abdominal pain. The patient was having lower abdominal discomfort, and she was having increased frequency and burning sensation with urination. She was also having fever with chills at home, and the patient was feeling weak and fatigue, and that is why she decided to come to emergency room. The patient reports that all symptoms going on for last 3 days and which were gradually getting worse. When she presented to emergency room, she was tachycardic and febrile. She was meeting sepsis criteria. The patient was treated with IV fluid and empiric antibiotic therapy with Rocephin and DuoNeb therapy, and subsequently, she was admitted to telemetry floor. PAST MEDICAL HISTORY: Peptic ulcer disease, end-stage COPD, chronic respiratory failure, on home oxygen, and history of shingles on her face. PAST SURGICAL HISTORY: Left hip ORIF, cholecystectomy a week ago. PAST PSYCHIATRIC HISTORY: Reviewed and negative. SOCIAL HISTORY: The patient is former smoker. She quit smoking more than 10 years ago. She denies any alcohol abuse. She denies any other illicit drug abuse. FAMILY HISTORY: No strong family history of premature coronary artery disease, stroke, or cancer. REVIEW OF SYSTEMS: CONSTITUTIONAL: Negative for weight loss or gain, ability to conduct usual activities. SKIN: Negative for rash, itching. EYES: Negative for double vision, pain. ENT/MOUTH: Negative for nose bleeding, neck stiffness, pain, tenderness. CARDIOVASCULAR: Negative for palpitations, dyspnea on exertion, orthopnea. RESPIRATORY: Negative for shortness of breath, wheezing, cough, hemoptysis, fever or night sweats. GASTROINTESTINAL: Negative for poor appetite, abdominal pain, heartburn, nausea, vomiting, constipation, or diarrhea. GENITOURINARY: Negative for urgency, frequency, dysuria, nocturia. MUSCULOSKELETAL: Negative for pain, swelling. NEUROLOGIC/PSYCHIATRIC: Negative for anxiety, depression. ALLERGY/IMMUNOLOGIC: Negative for skin rash, bleeding tendency. Please see my HPI for pertinent positives and negatives. All other review of systems reviewed and negative except as mentioned in HPI. ALLERGIES: NO KNOWN DRUG ALLERGY. CURRENT HOME MEDICATIONS: 1. Albuterol nebulization q.6 hourly p.r.n. 2. Advair inhalation b.i.d. 3. Aspirin 325 mg p.o. daily. 4. Ferrous sulfate 325 mg p.o. daily. 5. DuoNeb q.6h hourly. 6. Dulera 2 puffs inhalation b.i.d. 7. Multivitamin one tablet p.o. daily. 8. Cardizem 30 mg p.o. t.i.d. 9. Tramadol 50 mg q.6 hourly p.r.n. EMERGENCY ROOM COURSE: The patient is treated with IV fluid 2 L, Rocephin 1 g, and DuoNeb therapy. PHYSICAL EXAMINATION: VITAL SIGNS: Currently, blood pressure 162/82, pulse 137, respiratory rate 21, temperature 98.7, saturation 95% on 2 L. Weight 46 kg. GENERAL: The patient is currently appears emaciated. HEENT: Head, normocephalic and atraumatic. Eyes; pupils are round and reactive to light. Extraocular muscle intact. ENT: Oropharynx within normal limits. Moist mucous membranes. No oral lesion. No pharyngeal erythema. No exudate. NECK: Supple. No JVD. No meningeal signs of irritation. LUNGS: Bilateral air reduced entry, but no obvious rhonchi or rales. CARDIAC: S1 and S2 regular. Tachycardia. No murmur. No gallop. No rub. ABDOMEN: Soft. Bowel sounds present. Nontender. Nondistended. No organomegaly. No mass. The patient does have lower abdominal discomfort. BACK: Bilateral CVA tenderness noted. EXTREMITIES: Upper extremities, passive movement of all joints are normal. Lower extremity, no edema. Good distal pulsation. NEUROLOGIC: Nonfocal examination. SIGNIFICANT LABORATORY DATA: CBC; WBC 11.1, hemoglobin 11.3, platelets 186. BMP; sodium 141, potassium 3.7, chloride 107, carbon dioxide 21, anion gap 17, BUN 8, creatinine 0.80, glucose 107, calcium 9.0, lactic acid 1.5. LFT; AST 18, ALT 9, alkaline phosphatase 87, albumin 4.0. Urinalysis consistent with urinary tract infection. Chest x-ray consistent with atherosclerosis, chronic changes, no acute process. CT abdomen and pelvis consistent with mild hydronephrosis with diffuse urothelial enhancement bilaterally, age indeterminate T11 wedge compression deformity, severe thoracic and abdominal pelvic atherosclerotic disease with ulcerrobert harrell. ASSESSMENT AND PLAN: 1. Sepsis. The patient is meeting sepsis criteria with high-grade fever, tachycardia, leukocytosis with left shift. Source of infection is most likely urinary tract. The patient has underlying ascending urinary tract infection with pyelonephritis. The patient has received Rocephin in the emergency room. We will treat her with cefepime to cover broad spectrum. We will continue with IV fluid and follow up on culture result and change antibiotic therapy accordingly. 2. Pyelonephritis, bilateral, secondary to urinary tract infection ascending. The patient is currently on cefepime. We have to follow up on culture result and change antibiotic therapy accordingly. 3. End-stage chronic obstructive pulmonary disease without any exacerbation. We will continue with DuoNeb therapy every 6 hourly as well as Dulera 2 puffs inhalation b.i.d. 4. Sinus tachycardia, most likely related with sepsis, and the patient is also taking Cardizem, which we will continue while in hospital. 5. Moderate protein calorie malnutrition. The patient will need nutritional supplement with Ensure t.i.d. 6. Chronic respiratory failure with home oxygen therapy. We will continue oxygen to keep saturation above 92%. 7. Hypertension. We will continue Cardizem 60 mg before meals and at bedtime. Deep venous thrombosis prophylaxis. Lovenox 30 mg subcu daily. Gastrointestinal prophylaxis. Pepcid 20 mg p.o. b.i.d. 8. Anemia, normocytic normochromic. Continue ferrous sulfate 325 mg p.o. daily. CODE STATUS: The patient is full code. DISPOSITION PLAN: Based on clinical course, we will also start physical therapy evaluation during this admission. Plan of care discussed with the patient in detail. Job ID: [id number]
[2019-11-15] MEDS: Ondansetron ODT 4 MG TAB PO PRN (16:31)
[2019-11-15] MEDS: Mometasone/Formoterol 120 PUFF INHALER INH SCH (18:21)
[2019-11-16] MEDS: HYDROcodone/Acetaminophen 5/325 mg Tablet PO PRN ×3 (03:13→20:36)
[2019-11-16 04:55] LABS: #Lymphocytes 0.6 thou/uL (1.20-3.40); #Monocytes 0.8 thou/uL (0.11-0.59); #Neutrophils 6.7 thou/uL (1.40-6.50); %Basophils 0.1 % (0.0-1.0); %Eosinophils 0.5 % (0.0-10.0); %Lymphocytes 7.1 % (21.0-51.0); %Monocytes 9.9 % (0.0-10.0); %Neutrophils 82.4 % (42.0-75.0); Hemoglobin 11.9 g/dL (12.0-16.0); Mean Corpuscular HGB CONC 32.5 g/dL (32.0-36.0); Mean Corpuscular Hemoglobin 29.7 pg (27.0-31.0); Mean Corpuscular Volume 91.4 fL (78.0-98.0); Mean Platelet Volume 7.6 fL (7.4-10.4); Platelet Count 196 thou/uL (130-400); RBC Distribution Width 12.5 % (11.5-14.5); White Blood Cell (WBC) Count 8.1 thou/uL (4.8-10.8)
[2019-11-16 05:11] LABS: Anion Gap 13 mmol/L (10-20); BUN (Urea Nitrogen) 8 mg/dL (9.8-20.1); Calc. Creatinine Clearance 47 mL/min (70-130); Calcium 8.6 mg/dL (7.8-10.44); Carbon Dioxide 21 mmol/L (23-31); Chloride 107 mmol/L (98-107); Estimated GFR-MDRD 76; Glucose 94 mg/dL (83-110); Potassium 3.4 mmol/L (3.5-5.1); Sodium 138 mmol/L (136-145)
[2019-11-16] MEDS: Mometasone/Formoterol 120 PUFF INHALER INH SCH ×2 (07:47→19:53)
[2019-11-16] MEDS: Multivitamin W/ Minerals 1 TAB PO SCH (09:49)
[2019-11-16] MEDS: Cefepime 2 GM in Sodium Chloride 0.9% 100 ML IVPB SCH ×2 (09:52→20:28)
[2019-11-16] MEDS: Ferrous Sulfate 325 MG TAB PO SCH (09:53)
[2019-11-16] MEDS: Enoxaparin Sodium 30 MG/0.3 ML SYRINGE SC SCH (09:54)
[2019-11-16] MEDS: Aspirin 325 MG TAB PO SCH (09:55)
[2019-11-16] MEDS: Famotidine 20 MG TAB PO SCH (09:56)
--- NOTE | 2019-11-16 10:08 | PDOC.HOSPP ---
- Subjective Encounter Date: 11/16/19 Encounter Time: 10:07 Subjective: C/o 1010 burning pain in lower abdomen before and after urination. Reports burning and pain with urination. Reports nausea but no vomiting. Requesting liquid diet. No fever, chills overnight. No lightheadedness, CP, SOB. No D/C. Denies back pain. - Objective Vital Signs & Weight: Vital Signs (12 hours) Temp Pulse Resp BP Pulse Ox 11/16/19 07:50 120 H 16 11/16/19 07:23 97.8 F 67 20 166/74 H 96 11/16/19 03:17 99.2 F 102 H 18 133/61 92 L 11/16/19 00:35 104 H 18 95 11/16/19 00:00 140/65 Weight Weight 107 lb 8 oz I&O: 11/15/19 11/16/19 11/17/19 06:59 06:59 06:59 Intake Total 2183 Output Total 700 800 Balance -700 1383 Result Diagrams: 11/16/19 04:36 11/16/19 04:36 Hospitalist ROS - Medication Medications: Active Medications Generic Name Dose Route Start Last Admin Trade Name Freq PRN Reason Stop Dose Admin Hydrocodone Bitart/Acetaminophen 1 tab 11/15/19 07:23 11/16/19 09:49 [place] 5/325 PO 1 tab Q4H PRN Administration Moderate Pain (4-6) Albuterol/Ipratropium 3 ml 11/15/19 07:23 11/15/19 16:43 Duoneb NEB 3 ml Q2H PRN Administration SOB &/or Wheezing Diltiazem HCl 60 mg 11/16/19 09:00 11/16/19 09:49 Cardizem PO 60 mg TID ISAIAH Administration Enoxaparin Sodium 30 mg 11/16/19 09:00 11/16/19 09:54 Lovenox SC 30 mg 0900 ISAIAH Administration Ferrous Sulfate 325 mg 11/15/19 08:00 11/16/19 09:53 Feosol PO 325 mg QAM-WM ISAIAH Administration Cefepime HCl 2 gm/ Sodium 100 mls @ 200 mls/hr 11/15/19 08:00 11/16/19 09:52 Chloride IVPB 100 mls 0800,2000 ISAIAH Administration Sodium Chloride 1,000 mls @ 75 mls/hr 11/15/19 07:30 11/15/19 19:26 Normal Saline 0.9% IV 1,000 mls .[id number] ISAIAH Administration Iron/Minerals/Multivitamins 1 tab 11/15/19 09:00 11/16/19 09:49 Theragran M PO 1 tab DAILY ISAIAH Administration Mometasone Furoate/Formoterol Fumar 2 puff 11/15/19 18:30 11/16/19 07:47 Dulera 200 Mcg/5 Mcg Inhaler INH 2 puff BID-RT ISAIAH Administration Ondansetron HCl 4 mg 11/15/19 07:23 11/15/19 16:31 Zofran Odt PO 4 mg Q6H PRN Administration Nausea/Vomiting - Exam General Appearance: awake alert, ill appearing Eye: PERRL, anicteric sclera ENT: normocephalic atraumatic, no oropharyngeal lesions, moist mucosa Heart: RRR, no murmur, no gallops, no rubs, normal peripheral pulses Respiratory: CTAB, no wheezes, no rales, no ronchi, normal chest expansion, no tachypnea Respiratory - other findings: not using accessory muscles of respiration Gastrointestinal: soft, normal bowel sounds, no guarding, no rigidity Gastrointestinal - other findings: tender to palpation in the hypogastric region without rebound tenderness Extremities: no cyanosis, no clubbing, no edema Psychiatric: normal affect, normal behavior, A&O x 3 Hosp A/P (1) E. coli septicemia Code(s): A41.51 - SEPSIS DUE TO ESCHERICHIA COLI [E. COLI] Status: Acute Plan: 2/2 blood cultures postive for E.coli Continue cefepime IV Repeat blood cultures today to evaluate for bacterial clearance Follow cultures and adjust abx accordingly High risk due to risk of septic shock and need for IV abx Add phenazopyridine ofr 2 days for bladder pain (2) Hydronephrosis Code(s): N13.30 - UNSPECIFIED HYDRONEPHROSIS Status: Acute Qualifiers: Hydronephrosis type: unspecified Qualified Code(s): N13.30 - Unspecified hydronephrosis Plan: Mild bilateral hydronephrosis Likely related to UTI Will consult urology for evaluation (3) COPD (chronic obstructive pulmonary disease) Status: Chronic Qualifiers: COPD type: unspecified COPD Qualified Code(s): J44.9 - Chronic obstructive pulmonary disease, unspecified Plan: Stable and not in exacerbation Duonebs PRN (4) Respiratory failure Code(s): J96.90 - RESPIRATORY FAILURE, UNSP, UNSP W HYPOXIA OR HYPERCAPNIA Status: Chronic Qualifiers: Chronicity: chronic Respiratory failure complication: hypoxia Qualified Code(s): J96.11 - Chronic respiratory failure with hypoxia Plan: On home oxygen at 2L/min Continue oxygen and maintain sats 88-92% (5) PUD (peptic ulcer disease) Code(s): K27.9 - PEPTIC ULC, SITE UNSP, UNSP AC OR CHR, W/O HEMOR OR PERF Status: Chronic Plan: PPI - Plan continue antibiotics, DVT proph w/lovenox
[2019-11-16] MEDS ORDERED: Potassium Chloride 20 MEQ TAB PO SCH (10:15)
[2019-11-16] MEDS ORDERED: Phenazopyridine HCl 97.5 MG TABLET PO SCH ×2 (10:30→15:00)
[2019-11-16] MEDS: Sodium Chloride 0.9% 1,000 ML IV SCH ×2 (11:01→22:00)
[2019-11-16] MEDS: Ondansetron ODT 4 MG TAB PO PRN (11:06)
[2019-11-16] MEDS: Ondansetron PF 4 MG/2 ML Vial IVP PRN ×2 (11:12→20:36)
--- NOTE | 2019-11-16 12:24 | RAD ---
Abdomen one view HISTORY: Bladder decompression. FINDINGS: Gas and stool throughout the colon and rectum. Nonspecific small bowel gas pattern. Small calcification projects over the superior pole of the left renal shadow. Urinary bladder is now decompressed. This space replaced by bowel gas. Degenerative changes lumbar spine and right hip. Internal fixation left hip partially visualized. Met allic clips over the gallbladder fossa. IMPRESSION: Left renal calculi. Interval decompression of urinary bladder. Status post cholecystectomy.
[2019-11-16 12:35] LABS: Bacteria/HPF 2+ HPF (None Seen); Bilirubin Negative (Negative); Blood, Urine 1+ (Negative); Clarity Extra Turbid (Clear); Glucose, Urine (Dipstick) Normal (Negative); Leukocyte 500 Leu/uL (Negative); Nitrite Negative (Negative); Protein, Urine (Dipstick) 200 mg/dL (Neg-Trace); Squamous Epithelial None Seen HPF (0-3); Urobilinogen Normal mg/dL (Less than 2); WBC/HPF Greater than 50 HPF (0-3)
--- NOTE | 2019-11-16 15:19 | CON ---
DATE OF CONSULTATION: 11/16/2019 HISTORY OF PRESENT ILLNESS: This is a 78-year-old white female, whom I was asked to see today because of sepsis with probable urinary tract source. She has E coli growing in her blood and in her urine. She is on currently cefepime. It looks like she was admitted yesterday from the ER. She had a CAT scan done that I reviewed. It shows some mild bilateral hydro. There was concern of some ureteral mucosal abnormalities, probably associated with infection. On talking with her, she says that she for 2 to 3 days was having burning with urination and discomfort with urination. CAT scan also showed a somewhat distended bladder and had in place a Vergara catheter, not show much to get out, but she is much more comfortable now since her Vergara has been placed. I also had them do a KUB as her CAT scan was done3 in the morning and see if there was any evidence of obstruction to either ureter with any contrast remaining in the collecting systems and there was not. I think it is quite possible that her CT abnormalities related to her bladder being distended and possibly to having a urinary tract infection in causing some inflammation of the ureteral jeter. She to her knowledge has not had prior urinary tract infections. She did have a kidney stone years ago. Looking through microbiology record here, she had a gram-negative ambrocio in 2012 in her urine. She has had nothing else except for this current admission. She did have a cholecystectomy done. I think it was couple of weeks ago right around the time of , so it is about a month ago and she says between then and now, she had some type of an abdominal infection, which I cannot find any obvious record for, but she did have in early October, blood culture done. I do not find anything in her admissions here at [facility] to confirm why those tests were done. So with a Vergara catheter, she is much more comfortable. Her urine this time yellow, it is perhaps slightly cloudy. Her pulse rate is gone from 120 down to 86, blood pressure had been normal, O2 sats have been okay. She has been afebrile. Her white count was 11.1 yesterday, it is 8.1 today. She is slightly anemic, 11.3 or 11.9 today. Her creatinine is normal at 0.74. Urinalysis showed over 50 white cells and 2+ bacteria today, yesterday it did not show any bacteria. Cultures have been set up she is on antibiotics. PAST SURGICAL HISTORY: Includes the recent laparoscopic cholecystectomy. She has had a left hip ORIF. PAST MEDICAL HISTORY: She has COPD that is fairly significant on home oxygen. She has some history of ulcer disease. SOCIAL HISTORY: She quit smoke over 10 years ago. ALLERGIES: SHE HAS NO KNOWN DRUG ALLERGIES. MEDICATIONS: Her medicines are all listed. PHYSICAL EXAMINATION: She has no flank tenderness. No abdominal tenderness. Abdomen is flat without any masses. The bladder is not distended. IMPRESSION: Urinary tract infection with sepsis. She is on what is most likely appropriate antibiotics at least to the cultures come back, Escherichia coli is sensitive to. She seems to be much more comfortable since placement of Vergara catheter. She does not appear to be obstructed to either of the ureters or upper collecting systems, this does not need any stents, but I will leave this catheter in her bladder for at least a couple of days before another voiding trial. I did review her CAT scan from a month or so ago. She did not have any evidence of mild hydronephrosis at that time, so it may be that this is related just to infection as well as to bladder being somewhat distended. I will follow along with you. Job ID: [id number]
[2019-11-17 04:49] LABS: #Basophils 0.1 thou/uL (0.0-0.2); #Eosinphils 0.1 thou/uL (0.0-0.7); #Lymphocytes 0.7 thou/uL (1.20-3.40); #Monocytes 0.7 thou/uL (0.11-0.59); #Neutrophils 5.5 thou/uL (1.40-6.50); %Basophils 1.1 % (0.0-1.0); %Eosinophils 1.8 % (0.0-10.0); %Lymphocytes 10.1 % (21.0-51.0); %Monocytes 10.3 % (0.0-10.0); %Neutrophils 76.8 % (42.0-75.0); Hemoglobin 11.4 g/dL (12.0-16.0); Mean Corpuscular HGB CONC 32.7 g/dL (32.0-36.0); Mean Corpuscular Hemoglobin 29.9 pg (27.0-31.0); Mean Corpuscular Volume 91.6 fL (78.0-98.0); Mean Platelet Volume 7.6 fL (7.4-10.4); Platelet Count 241 thou/uL (130-400); RBC Distribution Width 12.2 % (11.5-14.5); White Blood Cell (WBC) Count 7.2 thou/uL (4.8-10.8)
[2019-11-17 05:10] LABS: ALT (SGPT) 42 U/L (8-55); AST (SGOT) 29 U/L (5-34); Albumin 3.3 g/dL (3.4-4.8); Alkaline Phosphatase 98 U/L (40-110); Anion Gap 14 mmol/L (10-20); BUN (Urea Nitrogen) 6 mg/dL (9.8-20.1); Bilirubin, Total 0.3 mg/dL (0.2-1.2); Calc. Creatinine Clearance 52 mL/min (70-130); Calcium 8.8 mg/dL (7.8-10.44); Carbon Dioxide 21 mmol/L (23-31); Chloride 109 mmol/L (98-107); Estimated GFR-MDRD 85; Glucose 88 mg/dL (83-110); Potassium 3.5 mmol/L (3.5-5.1); Protein, Total 6.3 g/dL (6.0-8.3); Sodium 140 mmol/L (136-145)
[2019-11-17] MEDS: Sodium Chloride 0.9% 1,000 ML IV SCH (05:49)
[2019-11-17] MEDS: Mometasone/Formoterol 120 PUFF INHALER INH SCH ×2 (07:45→18:30)
[2019-11-17] MEDS: Pantoprazole 40 MG GRANULES PACKET PO SCH (08:13)
[2019-11-17] MEDS: Ferrous Sulfate 325 MG TAB PO SCH (08:13)
[2019-11-17] MEDS: Cefepime 2 GM in Sodium Chloride 0.9% 100 ML IVPB SCH (08:15)
[2019-11-17] MEDS: Multivitamin W/ Minerals 1 TAB PO SCH (08:18)
[2019-11-17] MEDS: Enoxaparin Sodium 30 MG/0.3 ML SYRINGE SC SCH (08:18)
[2019-11-17] MEDS: cefTRIAXone\\ROCEPHIN 2 GM in Sodium Chloride 0.9% 100 ML IVPB SCH (09:51)
[2019-11-17] MEDS: Floranex Packet PO SCH (09:52)
[2019-11-17] MEDS: 1/2 NS w/KCL 20 mEq 1,000 ML IV SCH ×2 (10:00→21:35)
--- NOTE | 2019-11-17 10:03 | PDOC.HOSPP ---
- Subjective Encounter Date: 11/17/19 Encounter Time: 09:50 Subjective: Patient had patrick cath placed yesterday as ordered by urology and she has had significant relief in her abdominal pain since then. She initially had purulent urine after patrick placement. Reports that her breathing is well and denies any wheezing, palpitations or lightheadedness. No N/V/D/C. No fever or chills overnight. - Objective Vital Signs & Weight: Vital Signs (12 hours) Temp Pulse Resp BP Pulse Ox 11/17/19 07:45 102 H 20 97 11/17/19 03:16 98.2 F 86 18 143/64 H 96 11/17/19 00:00 123/56 L Weight Weight 107 lb 8 oz I&O: 11/16/19 11/17/19 11/18/19 06:59 06:59 06:59 Intake Total 5419 Output Total 700 4000 Balance -700 1419 Result Diagrams: 11/17/19 04:44 11/17/19 04:44 Hospitalist ROS - Medication Medications: Active Medications Generic Name Dose Route Start Last Admin Trade Name Freq PRN Reason Stop Dose Admin Hydrocodone Bitart/Acetaminophen 1 tab 11/15/19 07:23 11/16/19 20:36 [place] 5/325 PO 1 tab Q4H PRN Administration Moderate Pain (4-6) Acidophilus 1 gm 11/17/19 09:00 11/17/19 09:52 Floranex PO 1 gm DAILY ISAIAH Administration Albuterol/Ipratropium 3 ml 11/15/19 07:23 11/15/19 16:43 Duoneb NEB 3 ml Q2H PRN Administration SOB &/or Wheezing Calcium Carbonate 1,000 mg 11/15/19 07:23 11/16/19 14:27 Tums PO 1,000 mg Q4H PRN Administration Heartburn or Indigestion Diltiazem HCl 60 mg 11/16/19 09:00 11/17/19 08:18 Cardizem PO 60 mg TID ISAIAH Administration Enoxaparin Sodium 30 mg 11/16/19 09:00 11/17/19 08:18 Lovenox SC 30 mg 0900 ISAIAH Administration Ferrous Sulfate 325 mg 11/15/19 08:00 11/17/19 08:13 Feosol PO 325 mg QAM-WM ISAIAH Administration Potassium Chloride/Sodium Chloride 1,000 mls @ 75 mls/hr 11/17/19 08:15 11/17 10:00 1/2 Ns W/Kcl 20 Meq IV 1,000 mls .[id number] ISAIAH Administration Ceftriaxone Sodium 2 gm/ 100 mls @ 200 mls/hr 11/17/19 09:00 11/17/19 09:51 Sodium Chloride IVPB 100 mls Q24HR ISAIAH Administration Iron/Minerals/Multivitamins 1 tab 11/15/19 09:00 11/17/19 08:18 Theragran M PO 1 tab DAILY ISAIAH Administration Mometasone Furoate/Formoterol Fumar 2 puff 11/15/19 18:30 11/17/19 07:45 Dulera 200 Mcg/5 Mcg Inhaler INH 2 puff BID-RT ISAIAH Administration Ondansetron HCl 4 mg 11/15/19 07:23 11/15/19 16:31 Zofran Odt PO 4 mg Q6H PRN Administration Nausea/Vomiting Ondansetron HCl 4 mg 11/15/19 07:23 11/16/19 20:36 Zofran IVP 4 mg Q6H PRN Administration Nausea/Vomiting Pantoprazole Sodium 40 mg 11/17/19 07:30 11/17/19 08:13 Protonix PO 40 mg DAILY-AC ISAIAH Administration - Exam General Appearance: NAD, awake alert Eye: PERRL, anicteric sclera ENT: normocephalic atraumatic, no oropharyngeal lesions, moist mucosa Neck: supple, symmetric, no thyromegaly, no lymphadenopathy Heart: RRR, no gallops, no rubs Respiratory: CTAB, no wheezes, no rales Respiratory - other findings: reduced air entry bilaterally Gastrointestinal: soft, non-tender, non-distended, normal bowel sounds Gastrointestinal - other findings: Patrick in place with clear urine Extremities: no cyanosis, no clubbing, no edema Psychiatric: normal affect, normal behavior, A&O x 3 Hosp A/P (1) E. coli septicemia Code(s): A41.51 - SEPSIS DUE TO ESCHERICHIA COLI [E. COLI] Status: Acute (2) Hydronephrosis Code(s): N13.30 - UNSPECIFIED HYDRONEPHROSIS Status: Acute Qualifiers: Hydronephrosis type: unspecified Qualified Code(s): N13.30 - Unspecified hydronephrosis (3) COPD (chronic obstructive pulmonary disease) Status: Chronic Qualifiers: COPD type: unspecified COPD Qualified Code(s): J44.9 - Chronic obstructive pulmonary disease, unspecified (4) Respiratory failure Code(s): J96.90 - RESPIRATORY FAILURE, UNSP, UNSP W HYPOXIA OR HYPERCAPNIA Status: Chronic Qualifiers: Chronicity: chronic Respiratory failure complication: hypoxia Qualified Code(s): J96.11 - Chronic respiratory failure with hypoxia (5) PUD (peptic ulcer disease) Code(s): K27.9 - PEPTIC ULC, SITE UNSP, UNSP AC OR CHR, W/O HEMOR OR PERF Status: Chronic - Plan patrick catheter, DVT proph w/lovenox Hosp A/P (1) E. coli septicemia Code(s): A41.51 - SEPSIS DUE TO ESCHERICHIA COLI [E. COLI] Status: Acute Plan: 2/2 blood cultures postive for E.coli which is pansensitive Abx will be switched to ceftriaxone daily IV Repeat blood cultures to evaluate for bacterial clearance have been negative so far Total duration of abx to be 14 days starting 11/16/19 Transition to PO bactrim at the time of discharge Source of infection is UTI Urology on board. Appreciate input and assistance Continue Patrick x 2 days; Will DC Patrick tomorrow and perform voiding trial (2) Hydronephrosis Code(s): N13.30 - UNSPECIFIED HYDRONEPHROSIS Status: Acute Qualifiers: Hydronephrosis type: unspecified Qualified Code(s): N13.30 - Unspecified hydronephrosis Plan: Urology on board Related to UTI Has Patrick cath now with clear urine (3) COPD (chronic obstructive pulmonary disease) Status: Chronic Qualifiers: COPD type: unspecified COPD Qualified Code(s): J44.9 - Chronic obstructive pulmonary disease, unspecified Plan: Stable and not in exacerbation Duonebs PRN (4) Respiratory failure Code(s): J96.90 - RESPIRATORY FAILURE, UNSP, UNSP W HYPOXIA OR HYPERCAPNIA Status: Chronic Qualifiers: Chronicity: chronic Respiratory failure complication: hypoxia Qualified Code(s): J96.11 - Chronic respiratory failure with hypoxia Plan: On home oxygen at 2L/min Continue oxygen and maintain sats 88-92% (5) PUD (peptic ulcer disease) Code(s): K27.9 - PEPTIC ULC, SITE UNSP, UNSP AC OR CHR, W/O HEMOR OR PERF Status: Chronic Plan: Continue PPI
--- NOTE | 2019-11-17 13:18 | PRG ---
DATE OF SERVICE: 11/17/2019 This patient is afebrile. Vital signs are stable. Pulse occasionally goes up into the 100 range. O2 sats on 2 L nasal cannula appear satisfactory. Her blood pressure has been good. She has had very good urine output. She produced 2.6 L yesterday, and her urine is clear. She is more comfortable. I think with the catheter in and then without. She is still on Rocephin, and it does cover the E. coli that is in her urine as it is nearly pansensitive, resistant only to ampicillin and ampicillin variants. Her white count is normal. Her hemoglobin is 11.4, which is stable. Her creatinine is 0.67, also stable. She is currently getting physical therapy and is ambulating with a walker. She seems to be steadily improving. She says she does not feel good yet, but she feels better than when she came in. She will need to be on antibiotics at least for 2 weeks without having positive blood cultures. She probably needs this catheter to be left in for a few days. Not sure if she lives at home or lives in a nursing center. She has been through cholecystectomy, and then, gets an ER visit with some type of abdominal discomfort, now another visit with a febrile urinary tract infection with positive blood cultures, maybe that it would be best to go back to a half-way facility for a while when she is ready for discharge here. I would not be in a hurry to get her catheter out maybe over the next few days, 4 to 5 days, if her health continues to improve and she continues to get stronger, give her a voiding trial then. I do not think, I would do it before then. Job ID: [id number]
[2019-11-17] MEDS: HYDROcodone/Acetaminophen 5/325 mg Tablet PO PRN (20:55)
[2019-11-17] MEDS: Ondansetron PF 4 MG/2 ML Vial IVP PRN (21:02)
[2019-11-18 05:28] LABS: #Eosinphils 0.2 thou/uL (0.0-0.7); #Lymphocytes 1.1 thou/uL (1.20-3.40); #Monocytes 0.8 thou/uL (0.11-0.59); #Neutrophils 3.5 thou/uL (1.40-6.50); %Basophils 0.5 % (0.0-1.0); %Eosinophils 2.7 % (0.0-10.0); %Lymphocytes 19.3 % (21.0-51.0); %Monocytes 13.6 % (0.0-10.0); %Neutrophils 63.9 % (42.0-75.0); Hemoglobin 10.4 g/dL (12.0-16.0); Mean Corpuscular HGB CONC 32.5 g/dL (32.0-36.0); Mean Corpuscular Hemoglobin 29.4 pg (27.0-31.0); Mean Corpuscular Volume 90.5 fL (78.0-98.0); Mean Platelet Volume 7.5 fL (7.4-10.4); Platelet Count 260 thou/uL (130-400); RBC Distribution Width 12.1 % (11.5-14.5); Red Blood Cell (RBC) Count 3.55 mill/uL (4.20-5.40); White Blood Cell (WBC) Count 5.5 thou/uL (4.8-10.8)
[2019-11-18 05:39] LABS: Anion Gap 11 mmol/L (10-20); BUN (Urea Nitrogen) 6 mg/dL (9.8-20.1); Calc. Creatinine Clearance 59 mL/min (70-130); Calcium 8.5 mg/dL (7.8-10.44); Carbon Dioxide 25 mmol/L (23-31); Chloride 107 mmol/L (98-107); Estimated GFR-MDRD Greater than 90; Glucose 85 mg/dL (83-110); Potassium 3.3 mmol/L (3.5-5.1); Sodium 140 mmol/L (136-145)
[2019-11-18] MEDS: Pantoprazole 40 MG GRANULES PACKET PO SCH (08:35)
[2019-11-18] MEDS: Ferrous Sulfate 325 MG TAB PO SCH (08:35)
[2019-11-18] MEDS: Floranex Packet PO SCH (08:35)
[2019-11-18] MEDS: Multivitamin W/ Minerals 1 TAB PO SCH (08:36)
[2019-11-18] MEDS: Enoxaparin Sodium 30 MG/0.3 ML SYRINGE SC SCH (08:36)
[2019-11-18] MEDS: cefTRIAXone\\ROCEPHIN 2 GM in Sodium Chloride 0.9% 100 ML IVPB SCH (08:49)
[2019-11-18] MEDS: Mometasone/Formoterol 120 PUFF INHALER INH SCH ×2 (09:17→20:04)
--- NOTE | 2019-11-18 12:08 | PDOC.HOSPP ---
- Subjective Encounter Date: 11/18/19 Encounter Time: 11:35 Subjective: Pt. reports feeling better with improved abdominal pain. She is requesting solid food. States that she hasn't had a bowel movement yet. No lightheadedness , fever, chills. - Objective Vital Signs & Weight: Vital Signs (12 hours) Temp Pulse Resp BP Pulse Ox 11/18/19 10:54 98.1 F 97 16 138/65 99 11/18/19 09:17 100 16 11/18/19 08:25 98.4 F 95 18 159/73 H 96 11/18/19 08:10 96 11/18/19 03:32 97.9 F 86 18 166/77 H 98 Weight Admit Weight 107 lb 8 oz Weight 107 lb 8 oz I&O: 11/17/19 11/18/19 11/19/19 06:59 06:59 06:59 Intake Total 5419 2432 Output Total 4000 2700 Balance 1419 -268 Result Diagrams: 11/18/19 04:37 11/18/19 04:37 Hospitalist ROS - Medication Medications: Active Medications Generic Name Dose Route Start Last Admin Trade Name Freq PRN Reason Stop Dose Admin Hydrocodone Bitart/Acetaminophen 1 tab 11/15/19 07:23 11/17/19 20:55 [place] 5/325 PO 1 tab Q4H PRN Administration Moderate Pain (4-6) Acidophilus 1 gm 11/17/19 09:00 11/18/19 08:35 Floranex PO 1 gm DAILY ISAIAH Administration Albuterol/Ipratropium 3 ml 11/15/19 07:23 11/15/19 16:43 Duoneb NEB 3 ml Q2H PRN Administration SOB &/or Wheezing Calcium Carbonate 1,000 mg 11/15/19 07:23 11/16/19 14:27 Tums PO 1,000 mg Q4H PRN Administration Heartburn or Indigestion Diltiazem HCl 60 mg 11/16/19 09:00 11/18/19 08:36 Cardizem PO 60 mg TID ISAIAH Administration Enoxaparin Sodium 30 mg 11/16/19 09:00 11/18/19 08:36 Lovenox SC 30 mg 0900 ISAIAH Administration Ferrous Sulfate 325 mg 11/15/19 08:00 11/18/19 08:35 Feosol PO 325 mg QAM-WM ISAIAH Administration Potassium Chloride/Sodium Chloride 1,000 mls @ 75 mls/hr 11/17/19 08:15 11/17 21:35 1/2 Ns W/Kcl 20 Meq IV 1,000 mls .[id number] ISAIAH Administration Ceftriaxone Sodium 2 gm/ 100 mls @ 200 mls/hr 11/17/19 09:00 11/18/19 08:49 Sodium Chloride IVPB 100 mls Q24HR ISAIAH Administration Iron/Minerals/Multivitamins 1 tab 11/15/19 09:00 11/18/19 08:36 Theragran M PO 1 tab DAILY ISAIAH Administration Mometasone Furoate/Formoterol Fumar 2 puff 11/15/19 18:30 11/18/19 09:17 Dulera 200 Mcg/5 Mcg Inhaler INH 2 puff BID-RT ISAIAH Administration Ondansetron HCl 4 mg 11/15/19 07:23 11/15/19 16:31 Zofran Odt PO 4 mg Q6H PRN Administration Nausea/Vomiting Ondansetron HCl 4 mg 11/15/19 07:23 11/17/19 21:02 Zofran IVP 4 mg Q6H PRN Administration Nausea/Vomiting Pantoprazole Sodium 40 mg 11/17/19 07:30 11/18/19 08:35 Protonix PO 40 mg DAILY-AC ISAIAH Administration - Exam General Appearance: NAD, awake alert Eye: PERRL, anicteric sclera ENT: normocephalic atraumatic, no oropharyngeal lesions, moist mucosa Neck: supple, symmetric, no JVD, no lymphadenopathy Heart: no gallops, no rubs, normal peripheral pulses Heart - other findings: tachycardia present Respiratory: CTAB, no wheezes, normal chest expansion Respiratory - other findings: reduced air entry bilaterally Gastrointestinal: soft, non-tender, non-distended Gastrointestinal - other findings: Vergara with clear urine Hosp A/P (1) E. coli septicemia Code(s): A41.51 - SEPSIS DUE TO ESCHERICHIA COLI [E. COLI] Status: Acute (2) Hydronephrosis Code(s): N13.30 - UNSPECIFIED HYDRONEPHROSIS Status: Acute Qualifiers: Hydronephrosis type: unspecified Qualified Code(s): N13.30 - Unspecified hydronephrosis (3) COPD (chronic obstructive pulmonary disease) Status: Chronic Qualifiers: COPD type: unspecified COPD Qualified Code(s): J44.9 - Chronic obstructive pulmonary disease, unspecified (4) Respiratory failure Code(s): J96.90 - RESPIRATORY FAILURE, UNSP, UNSP W HYPOXIA OR HYPERCAPNIA Status: Chronic Qualifiers: Chronicity: chronic Respiratory failure complication: hypoxia Qualified Code(s): J96.11 - Chronic respiratory failure with hypoxia (5) PUD (peptic ulcer disease) Code(s): K27.9 - PEPTIC ULC, SITE UNSP, UNSP AC OR CHR, W/O HEMOR OR PERF Status: Chronic - Plan DVT proph w/lovenox Hosp A/P (1) E. coli septicemia Code(s): A41.51 - SEPSIS DUE TO ESCHERICHIA COLI [E. COLI] Status: Acute Plan: 2/2 blood cultures postive for E.coli which is pansensitive Continue ceftriaxone daily IV Repeat blood cultures have been negative so far Total duration of abx to be 14 days starting 11/16/19 Transition to PO bactrim at the time of discharge Source of infection is UTI Urology has signed off Discontinue Vergara tomorrow Voiding trail after Vergara removal (2) Hydronephrosis Code(s): N13.30 - UNSPECIFIED HYDRONEPHROSIS Status: Acute Qualifiers: Hydronephrosis type: unspecified Qualified Code(s): N13.30 - Unspecified hydronephrosis Plan: Urology signed off Related to UTI. Improving now Has Vergara cath now with clear urine (3) COPD (chronic obstructive pulmonary disease) Status: Chronic Qualifiers: COPD type: unspecified COPD Qualified Code(s): J44.9 - Chronic obstructive pulmonary disease, unspecified Plan: Stable and not in exacerbation Duonebs PRN (4) Respiratory failure Code(s): J96.90 - RESPIRATORY FAILURE, UNSP, UNSP W HYPOXIA OR HYPERCAPNIA Status: Chronic Qualifiers: Chronicity: chronic Respiratory failure complication: hypoxia Qualified Code(s): J96.11 - Chronic respiratory failure with hypoxia Plan: On home oxygen at 2L/min Continue oxygen and maintain sats 88-92% (5) PUD (peptic ulcer disease) Code(s): K27.9 - PEPTIC ULC, SITE UNSP, UNSP AC OR CHR, W/O HEMOR OR PERF Status: Chronic Plan: Continue PPI
[2019-11-18] MEDS ORDERED: Polyethylene Glycol 3350 17 GM Packet PO SCH (12:09)
--- NOTE | 2019-11-18 13:26 | PRG ---
DATE OF SERVICE: 11/18/2019 The patient has stable vital signs and good urine output. The urine is clear. She is still comfortable with the catheter in. Her white count is normal and hemoglobin is 10.4. Her creatinine remains normal. She will probably be going home or leaving the hospital next day or two, this sounds like she is moving probably could remove her catheter before she goes if she is going home. If she is going to senior living, I think she senior living unit with a catheter in for a couple of days, and then towards the end of her course of antibiotics, she could be given a voiding trial. Again, needed at least 2 weeks of appropriate oral antibiotics. I would not think she needs anything further in terms of her hydronephrosis. I think it was related to her bladder, it was being somewhat distended. I will sign off at this time and please re-consult as necessary. Job ID: [id number]
[2019-11-18] MEDS: 1/2 NS w/KCL 20 mEq 1,000 ML IV SCH (16:18)
[2019-11-19] MEDS: 1/2 NS w/KCL 20 mEq 1,000 ML IV SCH ×2 (03:02→06:18)
[2019-11-19 05:42] LABS: Anion Gap 14 mmol/L (10-20); BUN (Urea Nitrogen) 7 mg/dL (9.8-20.1); Calc. Creatinine Clearance 57 mL/min (70-130); Calcium 9.1 mg/dL (7.8-10.44); Carbon Dioxide 27 mmol/L (23-31); Chloride 104 mmol/L (98-107); Estimated GFR-MDRD Greater than 90; Glucose 95 mg/dL (83-110); Potassium 3.4 mmol/L (3.5-5.1); Sodium 142 mmol/L (136-145)
[2019-11-19 05:48] LABS: Band 14 % (5-11); Hemoglobin 11.6 g/dL (12.0-16.0); Lymphocytes 16 % (21-51); MDiff Complete? YES; Mean Corpuscular HGB CONC 33.3 g/dL (32.0-36.0); Mean Corpuscular Hemoglobin 29.9 pg (27.0-31.0); Mean Corpuscular Volume 89.7 fL (78.0-98.0); Mean Platelet Volume 7.3 fL (7.4-10.4); Monocytes 8 % (0-10); Neutrophil 61 % (42-75); Platelet Count 309 thou/uL (130-400); Platelet Morphology Comment Appears Adequate; RBC Distribution Width 12.2 % (11.5-14.5); RBC Morphology Normal; Reactive Lymphocytes 1 % (0-10); Red Blood Cell (RBC) Count 3.89 mill/uL (4.20-5.40); White Blood Cell (WBC) Count 6.6 thou/uL (4.8-10.8)
[2019-11-19] MEDS: Mometasone/Formoterol 120 PUFF INHALER INH SCH ×2 (07:43→20:09)
[2019-11-19] MEDS: Pantoprazole 40 MG GRANULES PACKET PO SCH (09:08)
[2019-11-19] MEDS: Multivitamin W/ Minerals 1 TAB PO SCH (09:08)
[2019-11-19] MEDS: Floranex Packet PO SCH (09:08)
[2019-11-19] MEDS: Ferrous Sulfate 325 MG TAB PO SCH (09:08)
[2019-11-19] MEDS: Potassium Chloride 20 MEQ TAB PO SCH ×2 (09:09→14:37)
[2019-11-19] MEDS: Enoxaparin Sodium 30 MG/0.3 ML SYRINGE SC SCH (09:09)
[2019-11-19] MEDS: cefTRIAXone\\ROCEPHIN 2 GM in Sodium Chloride 0.9% 100 ML IVPB SCH (09:09)
[2019-11-19] MEDS ORDERED: Milk Of Magnesia 30 ML UDCUP PO PRN (09:35)
--- NOTE | 2019-11-19 09:36 | PDOC.HOSPP ---
- Subjective Encounter Date: 11/19/19 Encounter Time: 09:30 Subjective: Patient reports feeling better today. She is requesting discontinuation of the Patrick catheter. Denies lightheadedness, nausea or vomiting. She hasn't yet had a bowel movement and is concerned about the same. No fever, chills. No headache. She is eager to be discharged home soon. - Objective Vital Signs & Weight: Vital Signs (12 hours) Temp Pulse Resp BP Pulse Ox 11/19/19 07:43 99 16 11/19/19 04:00 97.9 F 92 20 135/70 98 Weight Admit Weight 107 lb 8 oz Weight 107 lb 8 oz I&O: 11/18/19 11/19/19 11/20/19 06:59 06:59 06:59 Intake Total 2432 2875 Output Total 2700 1450 Balance -268 1425 Result Diagrams: 11/19/19 04:48 11/19/19 04:48 Hospitalist ROS - Medication Medications: Active Medications Generic Name Dose Route Start Last Admin Trade Name Freq PRN Reason Stop Dose Admin Hydrocodone Bitart/Acetaminophen 1 tab 11/15/19 07:23 11/17/19 20:55 [place] 5/325 PO 1 tab Q4H PRN Administration Moderate Pain (4-6) Acidophilus 1 gm 11/17/19 09:00 11/19/19 09:08 Floranex PO 1 gm DAILY ISAIAH Administration Albuterol/Ipratropium 3 ml 11/15/19 07:23 11/15/19 16:43 Duoneb NEB 3 ml Q2H PRN Administration SOB &/or Wheezing Calcium Carbonate 1,000 mg 11/15/19 07:23 11/16/19 14:27 Tums PO 1,000 mg Q4H PRN Administration Heartburn or Indigestion Diltiazem HCl 120 mg 11/19/19 09:00 11/19/19 09:08 Cardizem Cd PO 120 mg DAILY ISAIAH Administration Enoxaparin Sodium 30 mg 11/16/19 09:00 11/19/19 09:09 Lovenox SC 30 mg 0900 ISAIAH Administration Ferrous Sulfate 325 mg 11/15/19 08:00 11/19/19 09:08 Feosol PO 325 mg QAM-WM ISAIAH Administration Ceftriaxone Sodium 2 gm/ 100 mls @ 200 mls/hr 11/17/19 09:00 11/19/19 09:09 Sodium Chloride IVPB 100 mls Q24HR ISAIAH Administration Iron/Minerals/Multivitamins 1 tab 11/15/19 09:00 11/19/19 09:08 Theragran M PO 1 tab DAILY ISAIAH Administration Mometasone Furoate/Formoterol Fumar 2 puff 11/15/19 18:30 11/19/19 07:43 Dulera 200 Mcg/5 Mcg Inhaler INH 2 puff BID-RT ISAIAH Administration Ondansetron HCl 4 mg 11/15/19 07:23 11/15/19 16:31 Zofran Odt PO 4 mg Q6H PRN Administration Nausea/Vomiting Ondansetron HCl 4 mg 11/15/19 07:23 11/17/19 21:02 Zofran IVP 4 mg Q6H PRN Administration Nausea/Vomiting Pantoprazole Sodium 40 mg 11/17/19 07:30 11/19/19 09:08 Protonix PO 40 mg DAILY-AC ISAIAH Administration Potassium Chloride 40 meq 11/19/19 09:00 11/19/19 09:09 K-Dur PO 11/19/19 13:01 Not Given Q4HR ISAIAH Senna/Docusate Sodium 2 tab 11/15/19 07:23 11/19/19 06:18 Senokot S PO 2 tab BID PRN Administration Constipation - Exam General Appearance: NAD, awake alert Eye: PERRL, anicteric sclera ENT: normocephalic atraumatic, no oropharyngeal lesions, moist mucosa Neck: supple, symmetric, no JVD, no lymphadenopathy Heart: no murmur, no gallops, no rubs, normal peripheral pulses Heart - other findings: tachycardia present Respiratory: CTAB, no wheezes, no rales, no ronchi, normal chest expansion, no tachypnea Gastrointestinal: soft, non-tender, non-distended, normal bowel sounds Gastrointestinal - other findings: Patrick cath with clear urine Skin: normal turgor, no lesions, no rashes Hosp A/P (1) E. coli septicemia Code(s): A41.51 - SEPSIS DUE TO ESCHERICHIA COLI [E. COLI] Status: Acute (2) Hydronephrosis Code(s): N13.30 - UNSPECIFIED HYDRONEPHROSIS Status: Acute Qualifiers: Hydronephrosis type: unspecified Qualified Code(s): N13.30 - Unspecified hydronephrosis (3) COPD (chronic obstructive pulmonary disease) Status: Chronic Qualifiers: COPD type: unspecified COPD Qualified Code(s): J44.9 - Chronic obstructive pulmonary disease, unspecified (4) Respiratory failure Code(s): J96.90 - RESPIRATORY FAILURE, UNSP, UNSP W HYPOXIA OR HYPERCAPNIA Status: Chronic Qualifiers: Chronicity: chronic Respiratory failure complication: hypoxia Qualified Code(s): J96.11 - Chronic respiratory failure with hypoxia (5) PUD (peptic ulcer disease) Code(s): K27.9 - PEPTIC ULC, SITE UNSP, UNSP AC OR CHR, W/O HEMOR OR PERF Status: Chronic - Plan PT/OT, out of bed/ambulate, dc patrick, dc tele Hosp A/P (1) E. coli septicemia Code(s): A41.51 - SEPSIS DUE TO ESCHERICHIA COLI [E. COLI] Status: Acute Plan: 2/2 blood cultures postive for E.coli which is pansensitive Continue ceftriaxone daily IV while in the hospital Repeat blood cultures have been negative so far Total duration of abx to be 14 days starting 11/16/19 Transition to PO bactrim at the time of discharge Source of infection is UTI Discontinue Patrick cath Voiding trail after Patrick removal Anticipate DC home with HH in the next 24-48 hrs (2) Hydronephrosis Code(s): N13.30 - UNSPECIFIED HYDRONEPHROSIS Status: Acute Qualifiers: Hydronephrosis type: unspecified Qualified Code(s): N13.30 - Unspecified hydronephrosis Plan: Related to UTI. Resolved DC Patrick cath (3) COPD (chronic obstructive pulmonary disease) Status: Chronic Qualifiers: COPD type: unspecified COPD Qualified Code(s): J44.9 - Chronic obstructive pulmonary disease, unspecified Plan: Stable and not in exacerbation Duonebs PRN Continue LABA at home dose (4) Respiratory failure Code(s): J96.90 - RESPIRATORY FAILURE, UNSP, UNSP W HYPOXIA OR HYPERCAPNIA Status: Chronic Qualifiers: Chronicity: chronic Respiratory failure complication: hypoxia Qualified Code(s): J96.11 - Chronic respiratory failure with hypoxia Plan: On home oxygen at 2L/min Wean oxygen and maintain sats 88-92% (5) PUD (peptic ulcer disease) Code(s): K27.9 - PEPTIC ULC, SITE UNSP, UNSP AC OR CHR, W/O HEMOR OR PERF Status: Chronic Plan: Continue PPI 6) Constipation Continue miralax, senokot MOM PRN
[2019-11-20 07:16] LABS: #Eosinphils 0.2 thou/uL (0.0-0.7); #Lymphocytes 1.8 thou/uL (1.20-3.40); #Neutrophils 4.3 thou/uL (1.40-6.50); %Basophils 0.5 % (0.0-1.0); %Eosinophils 2.5 % (0.0-10.0); %Lymphocytes 24.9 % (21.0-51.0); %Monocytes 13.1 % (0.0-10.0); Hemoglobin 11.7 g/dL (12.0-16.0); Mean Corpuscular HGB CONC 31.4 g/dL (32.0-36.0); Mean Corpuscular Hemoglobin 28.7 pg (27.0-31.0); Mean Corpuscular Volume 91.4 fL (78.0-98.0); Mean Platelet Volume 7.1 fL (7.4-10.4); Platelet Count 380 thou/uL (130-400); RBC Distribution Width 12.3 % (11.5-14.5); Red Blood Cell (RBC) Count 4.08 mill/uL (4.20-5.40); White Blood Cell (WBC) Count 7.2 thou/uL (4.8-10.8)
[2019-11-20 07:35] LABS: Anion Gap 15 mmol/L (10-20); BUN (Urea Nitrogen) 10 mg/dL (9.8-20.1); Calc. Creatinine Clearance 56 mL/min (70-130); Calcium 9.4 mg/dL (7.8-10.44); Carbon Dioxide 24 mmol/L (23-31); Chloride 107 mmol/L (98-107); Estimated GFR-MDRD Greater than 90; Glucose 99 mg/dL (83-110); Potassium 3.7 mmol/L (3.5-5.1); Sodium 142 mmol/L (136-145)
[2019-11-20] MEDS: Mometasone/Formoterol 120 PUFF INHALER INH SCH (07:55)
[2019-11-20] MEDS: Pantoprazole 40 MG GRANULES PACKET PO SCH (08:04)
[2019-11-20] MEDS: Multivitamin W/ Minerals 1 TAB PO SCH (08:07)
[2019-11-20] MEDS: Ferrous Sulfate 325 MG TAB PO SCH (08:07)
[2019-11-20] MEDS: cefTRIAXone\\ROCEPHIN 2 GM in Sodium Chloride 0.9% 100 ML IVPB SCH (08:08)
[2019-11-20] MEDS: Enoxaparin Sodium 30 MG/0.3 ML SYRINGE SC SCH (08:08)
[2019-11-20] MEDS ORDERED: Sulfameth/Trimethoprim DS 800-160mg TAB PO SCH (09:00)
[2019-11-20] MEDS: Floranex Packet PO SCH (09:43)
[2019-11-20 13:20] VITALS: BP 101/64; TEMP 97.8
--- NOTE | 2019-11-21 08:45 | DIS ---
DATE OF ADMISSION: 11/15/2019 DATE OF DISCHARGE: 11/19/2019 ADMISSION DIAGNOSES: 1. Sepsis. 2. Bilateral pyelonephritis. 3. 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 4. Sinus tachycardia. 5. Moderate protein calorie malnutrition. 6. Chronic respiratory failure with home oxygen therapy. 7. Essential hypertension. DISCHARGE DIAGNOSES: 1. E coli septicemia due to urinary tract infection. 2. Bilateral hydronephrosis due to lower urinary tract obstruction that has resolved. 3. Chronic obstructive pulmonary disease. 4. Chronic hypoxic respiratory failure. 5. Peptic ulcer disease. 6. Constipation. 7. Essential hypertension. 8. Moderate protein calorie malnutrition. CONSULTATIONS: Urology-Dr. Shaun Valdez. PERTINENT IMAGING AND PROCEDURES: The patient underwent a CT scan of the abdomen/pelvis on 11/15/2019, which revealed mild hydronephrosis with diffuse urothelial enhancement bilaterally. This is suspicious for an ascending urinary tract infection. Nonobstructing left nephrolithiasis. Age indeterminate T11 mild wedge compression deformity. Status post cholecystectomy. Severe lower thoracic/abdominopelvic thoracic atherosclerotic disease with moderate ulcerating plaque in the distal thoracic aorta and small infrarenal abdominal aortic aneurysm measuring 2.5 cm. BRIEF HOSPITAL COURSE: The patient is a 78-year-old female with a past medical history of end-stage chronic obstructive pulmonary disease, on home oxygen therapy, presented to the emergency department due to nausea, vomiting, and abdominal pain. In the emergency department, the patient underwent CT scan of the abdomen/pelvis, which revealed mild bilateral hydronephrosis. The patient was found to be septic and admitted to the hospital. She was suspected to have pyelonephritis. During hospital course, 2/2 blood cultures were positive for E coli which is pansensitive. The patient's antibiotics were adjusted appropriately. Urology was consulted given bilateral hydronephrosis. The patient had Vergara catheter placed with purulent urine. The patient's urine eventually cleared up. The patient has been cleared by Urology to be discharged without Vergara catheter. The Vergara catheter was removed three days later and the patient has positive voiding trial. Repeat blood cultures have been negative, consistent with clearance of bacteremia. Hence, the patient has been deemed stable to be discharged home on Bactrim to finish a two-week course of antibiotic therapy. The patient has been felt to require Home Health after being evaluated by Physical therapy and Occupational therapy. Home health is being set up. As the patient is back to baseline and has been cleared by our Urology, the patient has been deemed stable to be discharged home today. On the day of discharge, the patient is lying in the bed and appears to be in no acute distress. Auscultation of the lungs revealed reduced breath sounds bilaterally. Examination of the abdomen reveals soft abdomen without any tenderness to palpation. Bowel sounds present. DISCHARGE INSTRUCTIONS: 1. Discharge disposition: Home Health. 2. Discharge medications: Reconciled. New medications include Bactrim Double Strength, diltiazem Extended Release, and probiotics. 3. Discharge followup: Dr. Carlos Owen in 10 days. 4. Discharge activity: As tolerated and as per Physical therapy and Occupational therapy. 5. Discharge diet: Low-salt, heart healthy diet. 6. Discharge followup for the primary care physician: a. Consider Urology followup for left-sided nephrolithiasis. b. The patient has infrarenal abdominal aortic aneurysm of 2.5 cm. The patient requires six months to one yearly abdominal ultrasound to follow up progression of the AAA. TIME SPENT: Total time taken for discharge-40 minutes. Job ID: [id number]
== END 2019-11-20 13:43 | disposition home health service (06) | DRG 872 ==
LOC: ERS 02:51 → 2NO 06:49 → T4-B 11-19 15:39
PROVIDERS: ADMIT Internal Medicine; ATTEND Internal Medicine
DX: A41.51 Sepsis due to Escherichia coli [E. coli] (principal); N13.6 Pyonephrosis; E44.0 Moderate protein-calorie malnutrition; Z68.1 Body mass index [BMI] 19.9 or less, adult; J96.11 Chronic respiratory failure with hypoxia; J44.9 Chronic obstructive pulmonary disease, unspecified; I10 Essential (primary) hypertension; K59.00 Constipation, unspecified; K27.9 Peptic ulcer, site unspecified, unspecified as acute or chronic, without hemorrhage or perforation; D64.9 Anemia, unspecified; Z96.642 Presence of left artificial hip joint; I71.4 Abdominal aortic aneurysm, without rupture; Z90.49 Acquired absence of other specified parts of digestive tract; Z87.891 Personal history of nicotine dependence; Z99.81 Dependence on supplemental oxygen
CPT/HCPCS: 36415; 36416; 71045; 74018; 74177; 80048; 80053; 81001; 81003; 81015; 83605; 85025; 87040; 87077; 87086; 87149; 87186; 93005; 94640; 96361; 96365; J0692; J0696; J1650; J2405; J3480; J3490; J7620; Q0162

== ENCOUNTER 2022-04-25 12:35 | Observation (INO) | payer MEDICARE ==
[2022-04-25] MEDS ORDERED: Ondansetron PF 4 MG/2 ML Vial IVP PRN (15:15)
[2022-04-25] MEDS ORDERED: Ondansetron ODT 4 MG TAB SL PRN (15:15)
[2022-04-25] MEDS ORDERED: Bisacodyl 5 MG TAB PO PRN (15:36)
[2022-04-25] MEDS ORDERED: Acetaminophen 325 MG TAB PO PRN (15:36)
[2022-04-25] MEDS ORDERED: Nitroglycerin 0.4 MG TAB (25 Tab Bottle) SL PRN (15:36)
[2022-04-25] MEDS ORDERED: Senokot S 8.6-50 MG TAB PO PRN (15:36)
[2022-04-25 15:41] VITALS: BMI 17.2
[2022-04-25] MEDS ORDERED: Zolpidem Tartrate 5 MG TAB PO SCH (23:30)
[2022-04-26 05:34] LABS: #Eosinphils 0.4 thou/uL (0.0-0.7); #Lymphocytes 1.6 thou/uL (1.20-3.40); #Monocytes 0.8 thou/uL (0.11-0.59); #Neutrophils 5.7 thou/uL (1.40-6.50); %Basophils 0.4 % (0.0-1.0); %Eosinophils 4.5 % (0.0-10.0); %Lymphocytes 18.6 % (21.0-51.0); %Monocytes 9.7 % (0.0-10.0); %Neutrophils 66.7 % (42.0-75.0); Mean Corpuscular HGB CONC 32.7 g/dL (32.0-36.0); Mean Corpuscular Hemoglobin 30.2 pg (27.0-31.0); Mean Corpuscular Volume 92.4 fL (78.0-98.0); Mean Platelet Volume 8.2 fL (7.4-10.4); Platelet Count 251 thou/uL (130-400); RBC Distribution Width 13.2 % (11.5-14.5); Red Blood Cell (RBC) Count 3.98 mill/uL (4.20-5.40); White Blood Cell (WBC) Count 8.5 thou/uL (4.8-10.8)
[2022-04-26 05:46] LABS: ALT (SGPT) 8 U/L (8-55); AST (SGOT) 23 U/L (5-34); Albumin 3.5 g/dL (3.4-4.8); Alkaline Phosphatase 64 U/L (40-110); Anion Gap 13 mmol/L (10-20); BUN (Urea Nitrogen) 19 mg/dL (9.8-20.1); Bilirubin, Total 0.5 mg/dL (0.2-1.2); Calc. Creatinine Clearance 41 mL/min (70-130); Calcium 8.7 mg/dL (7.8-10.44); Carbon Dioxide 25 mmol/L (23-31); Cardiac Risk 3.2 (Less than 4.5); Chloride 103 mmol/L (98-107); Cholesterol 199 mg/dl (< 200 Desired); Globulin 2.7 g/dL (2.4-3.5); Glucose 93 mg/dL (83-110); HDL Cholesterol 63 mg/dL (>60 Neg Risk); LDL Cholesterol, Calculated 114 mg/dL; Potassium 4.3 mmol/L (3.5-5.1); Protein, Total 6.2 g/dL (5.8-8.1); Sodium 137 mmol/L (136-145); Triglycerides 108 mg/dL (Less than 150)
[2022-04-26] MEDS: Enoxaparin Sodium 30 MG/0.3 ML SYRINGE SC SCH (09:50)
[2022-04-26] MEDS: Aspirin Chewable 81 MG TAB PO SCH (09:50)
[2022-04-26] MEDS: predniSONE 5 MG TAB PO SCH (09:50)
[2022-04-26] MEDS ORDERED: Regadenoson 0.4 MG/5 ML SYRINGE ONE (13:54)
[2022-04-26] MEDS ORDERED: Amlodipine 5 MG TAB PO SCH (15:00)
[2022-04-26] MEDS ORDERED: Rosuvastatin 20 MG TAB PO SCH (21:00)
[2022-04-27] MEDS ORDERED: Melatonin 3 MG TAB PO PRN (00:09)
[2022-04-27] MEDS: Aspirin Chewable 81 MG TAB PO SCH (07:46)
[2022-04-27] MEDS: predniSONE 5 MG TAB PO SCH (07:48)
[2022-04-27] MEDS: Enoxaparin Sodium 30 MG/0.3 ML SYRINGE SC SCH (07:49)
[2022-04-27] MEDS ORDERED: Amlodipine 5 MG TAB PO SCH (09:00)
[2022-04-27 11:31] VITALS: BP 135/61; TEMP 98.1
== END 2022-04-27 13:50 | disposition home or self-care (01) ==
LOC: 2SW 12:35
PROVIDERS: ADMIT Internal Medicine; ATTEND Internal Medicine
DX: R07.89 Other chest pain (principal); J44.9 Chronic obstructive pulmonary disease, unspecified; I12.9 Hypertensive chronic kidney disease with stage 1 through stage 4 chronic kidney disease, or unspecified chronic kidney disease; N18.2 Chronic kidney disease, stage 2 (mild); Z20.822 Contact with and (suspected) exposure to COVID-19; Z79.82 Long term (current) use of aspirin; Z79.899 Other long term (current) drug therapy; Z99.81 Dependence on supplemental oxygen
CPT/HCPCS: 78452; 80061; 84484; 93017; 93306; 94640; 94760; A9500; U0003; U0005; 36415; 80053; 84443; 85025; 96372; G0378; J1650; J2785; J7512; J7620

== ENCOUNTER 2023-03-11 20:59 | Inpatient (IN) | payer MEDICARE ==
[2023-03-11] MEDS ORDERED: Morphine 4 MG/ML VIAL ONE (21:35)
[2023-03-11] MEDS ORDERED: Ketorolac Tromethamine 30 MG/ML VIAL ONE (21:35)
[2023-03-11] MEDS ORDERED: Ondansetron PF 4 MG/2 ML Vial ONE (21:35)
[2023-03-11 21:47] LABS: #Lymphocytes 0.8 thou/uL (1.20-3.40); #Neutrophils 10.8 thou/uL (1.40-6.50); %Eosinophils 0.1 % (0.0-10.0); %Lymphocytes 6.3 % (21.0-51.0); %Monocytes 7.9 % (0.0-10.0); %Neutrophils 85.7 % (42.0-75.0); Hemoglobin 11.3 g/dL (12.0-16.0); Mean Corpuscular HGB CONC 31.7 g/dL (32.0-36.0); Mean Corpuscular Hemoglobin 31.2 pg (27.0-31.0); Mean Corpuscular Volume 98.3 fl (78.0-98.0); Mean Platelet Volume 7.5 fL (7.4-10.4); Platelet Count 212 10x3/uL (130-400); RBC Distribution Width 13.2 % (11.5-14.5); Red Blood Cell (RBC) Count 3.63 mill/uL (4.20-5.40); White Blood Cell (WBC) Count 12.7 10x3/uL (4.8-10.8)
[2023-03-11 22:07] LABS: ALT (SGPT) 17 U/L (8-55); AST (SGOT) 14 U/L (5-34); Alkaline Phosphatase 198 U/L (40-110); Anion Gap 13 mmol/L (10-20); BUN (Urea Nitrogen) 12 mg/dL (9.8-20.1); Bilirubin, Total 0.3 mg/dL (0.2-1.2); Calc. Creatinine Clearance 0 mL/min (70-130); Calcium 9.7 mg/dL (7.8-10.44); Carbon Dioxide 30 mmol/L (23-31); Chloride 106 mmol/L (98-107); Estimated GFR 70; Globulin 2.4 g/dL (2.4-3.5); Glucose 109 mg/dL (83-110); Potassium 3.8 mmol/L (3.5-5.1); Protein, Total 6.4 g/dL (5.8-8.1); Sodium 145 mmol/L (136-145)
[2023-03-11 23:43] LABS: Bilirubin Negative (Negative); Blood, Urine Negative (Negative); Clarity Clear (Clear); Glucose, Urine (Dipstick) Normal (Negative); Ketone, Urine Negative (Negative); Leukocyte Negative Leu/uL (Negative); Nitrite Negative (Negative); Protein, Urine (Dipstick) 10 mg/dL (Neg-Trace); Specific Gravity, Urine 1.008 (1.002-1.036); Urobilinogen Normal mg/dL (Less than 2); pH, Urine 7.5 (5.0-9.0)
[2023-03-12] MEDS ORDERED: Aspirin 325 MG TAB ONE (02:22)
[2023-03-12] MEDS ORDERED: Ondansetron PF 4 MG/2 ML Vial IVP PRN (04:45)
[2023-03-12] MEDS ORDERED: Sodium Chloride 0.9% 1,000 ML IV SCH (04:45)
[2023-03-12] MEDS ORDERED: Acetaminophen 325 MG TAB PO PRN (04:45)
[2023-03-12] MEDS ORDERED: Ondansetron ODT 4 MG TAB SL PRN (04:45)
[2023-03-12 05:03] VITALS: BMI 16.9
[2023-03-12 08:32] LABS: Troponin I Less than 0.010 ng/mL (< 0.028)
[2023-03-12] MEDS ORDERED: Melatonin 3 MG TAB PO PRN (08:49)
[2023-03-12] MEDS ORDERED: Albuterol 200 PUFF (6.7GM INHALER) INH PRN (08:49)
[2023-03-12] MEDS ORDERED: traMADol HCl 50 MG TAB PO PRN (08:49)
[2023-03-12] MEDS: Amlodipine 5 MG TAB PO SCH (09:32)
[2023-03-12] MEDS: Aspirin 81 mg Enteric Coated Tablet PO SCH (09:32)
[2023-03-12] MEDS ORDERED: Non-Formulary Item 1 EACH (Sertraline Hcl [Sertraline Hcl] 50 MG Tablet) PO SCH (21:00)
[2023-03-12] MEDS ORDERED: Sertraline 25 MG TAB PO SCH (21:00)
[2023-03-12] MEDS ORDERED: Rosuvastatin 20 MG TAB PO SCH (21:00)
[2023-03-13] MEDS: Amlodipine 5 MG TAB PO SCH (09:22)
[2023-03-13] MEDS: Aspirin 81 mg Enteric Coated Tablet PO SCH (09:23)
[2023-03-14] MEDS: Aspirin 81 mg Enteric Coated Tablet PO SCH (09:26)
[2023-03-14] MEDS: Amlodipine 5 MG TAB PO SCH (09:30)
[2023-03-14 12:37] VITALS: BP 122/77; TEMP 97.5
== END 2023-03-14 12:50 | disposition home or self-care (01) | DRG 543 ==
LOC: ERS 20:59 → 2NO 03-12 03:31 → OBSVTOIN 03-14 11:02
PROVIDERS: ADMIT Student in an Organized Health Care Education/Training Program; ATTEND Internal Medicine
DX: M48.54XA Collapsed vertebra, not elsewhere classified, thoracic region, initial encounter for fracture (principal); J96.10 Chronic respiratory failure, unspecified whether with hypoxia or hypercapnia; R07.89 Other chest pain; J44.9 Chronic obstructive pulmonary disease, unspecified; I10 Essential (primary) hypertension; Z79.82 Long term (current) use of aspirin; Z79.52 Long term (current) use of systemic steroids; Z79.899 Other long term (current) drug therapy; Z99.81 Dependence on supplemental oxygen; Z90.710 Acquired absence of both cervix and uterus; F41.9 Anxiety disorder, unspecified; Z87.442 Personal history of urinary calculi
CPT/HCPCS: 36415; 51701; 71045; 74176; 80053; 81003; 83605; 84484; 85025; 87040; 87086; 93005; 96374; 96375; G0378; J1885; J2270; J2405; J7050